=== PATIENT | female | born 1975 | race Caucasian/White ===

== ENCOUNTER 2022-04-11 07:29 | Emergency (ER) | payer BC, SELFPAY ==
--- NOTE | ~2022-04-11 | CT_ITS ---
EXAMINATION: CT ABDOMEN AND PELVIS WITH CONTRAST CLINICAL INFORMATION: Diffuse abdominal pain, nausea, vomiting, constipation. History obstruction. COMPARISON: None TECHNIQUE: Multidetector volumetric images were obtained from the superior aspect of the liver through the pubic symphysis following administration 85 mL of Omnipaque 350 intravenous contrast. Sagittal and coronal reformatted images were obtained on the technologist's workstation. Oral contrast: No This CT examination was performed using dose optimization techniques as appropriate, variously including the following: *Automated exposure control *Adjustment of mA and/or kV according to patient size (this includes techniques or standardized protocols for targeted exams where dose is matched to indication/reason for exam; i.e. extremities or head) *Use of iterative reconstruction technique DLP: 483 mGy-cm FINDINGS: LUNG BASES: The visualized lung bases are unremarkable. LIVER, GALLBLADDER, AND BILIARY TREE: The liver is normal in size, shape, and attenuation. No focal hepatic lesion or biliary ductal dilatation is present. Prior cholecystectomy. Common duct unremarkable. PANCREAS: Unremarkable. SPLEEN: Unremarkable. Incidental 1.2 cm splenule left upper quadrant. ADRENAL GLANDS: Unremarkable. KIDNEYS AND URETERS: The kidneys are normal in size, shape, and attenuation. No hydronephrosis, hydroureter, or calculi seen. No perinephric stranding. Parapelvic cyst 0.7 cm versus calyceal diverticulum upper pole right kidney. No additional imaging follow-up recommended. BLADDER: Unremarkable. GASTROINTESTINAL TRACT: There is no large or small bowel obstruction or focal inflammatory changes in the bowel or mesentery. The appendix is not seen with certainty. There are no inflammatory changes around the cecum or terminal ileum. No pneumatosis or free air. No ascites or fluid collection. ABDOMINAL WALL: No significant hernia is appreciated. LYMPH NODES: No lymphadenopathy. VASCULAR: Unremarkable. PELVIC VISCERA: Uterus retroverted. Dominant follicle right ovary 2.1 cm. No pelvic ascites. OSSEOUS STRUCTURES: Unremarkable. CT/CT abdomen pelvis w IV con IMPRESSION: 1. No bowel obstruction or focal inflammatory changes in bowel or mesentery. 2. Prior cholecystectomy. No ductal dilatation. 3. No hydronephrosis, calculi, or perinephric stranding. 4. Incidental dominant follicle right ovary 2.1 cm. Retroverted uterus. No pelvic ascites.
[2022-04-11 07:34] VITALS: BP 142/51; PULSE 91; RESP 18; TEMP 36.1; O2SAT 100; BMI 23.6
[2022-04-11 08:44] LABS: MANUAL DIFF FLAG NO
--- NOTE | 2022-04-11 08:55 | ED.ABDPAIN ---
HPI - Abdominal Pain General Chief Complaint: Abdominal Pain Stated Complaint: nausea/abd pain/dizziness Time Seen by Provider: 04/11/22 08:30 Source: patient Mode of arrival: ambulatory Limitations: no limitations History of Present Illness HPI narrative: Patient is a 46-year-old female who presents emergency department for evaluation of abdominal pain with constipation. She reports a history of a bowel obstruction in 2018, that did not require surgical intervention, but her symptoms feel similar to that. She still reports no significant bowel movement over the past 6-7 days despite the use of enemas. She reports that yesterday she did pass a very small amount of stool, with the presence of bright red blood clots. She is passing flatness. She has diffuse abdominal pain, particularly to the right lower quadrant. Has history of cholecystectomy and appendectomy, prior obstruction was thought to be in relation to adhesions from her appendectomy. Pain right now is 4/10. Of note she does endorse testing positive for COVID-19 12-14 days ago. She has associated nausea, previous vomiting but not over the past 2 days. Related Data Previous Rx's Medication Instructions Recorded lactulose 10 gram/15 mL (15 mL) 20 g (30 mL) PO TID #600 mL 04/11/22 oral solution Allergies Allergy/AdvReac Type Severity Reaction Status Date / Time acetazolamide Allergy Unknown Unknown Verified 04/11/22 09:11 furosemide Allergy Unknown Unknown Verified 04/11/22 09:11 topiramate [From Topamax] Allergy Unknown Unknown Verified 04/11/22 09:11 Bactrim Allergy Unknown unknown Uncoded 04/11/22 09:11 Review of Systems Review of Systems Constitutional : No Weight loss, No Fever, No Chills ENT/Mouth :? No sore throat, No Rhinorrhea Eyes: No Swelling, No Redness Cardiovascular : No Chest Pain, No SOB, No Edema Respiratory : No Cough, No Sputum, No Wheezing Gastrointestinal : Positive Nausea, no Vomiting, no Diarrhea, positive constipation, positive abdominal pain, No Hematochezia, No Melena Genitourinary : No Dysuria, No Urinary Frequency, No Hematuria, No Urgency? Musculoskeletal : No joint pain, No Myalgias, No Joint Swelling Skin : No Skin Lesions, No rash Neuro : No Weakness, No Numbness, No Dizziness, No Headache Psych : No Anxiety/Panic, No Depression Heme/Lymph: No Bruising, No Lymphadenopathy Endocrine : No Polyuria, No Polydipsia Yes all other systems are reviewed and are negative [facility] Past Medical History Attestation statement: The following information was validated with the patient. Source: old records reviewed Social History Social History Alcohol intake: unknown Smoked in Last 30 Days: No Use of substances other than those prescribed or required for medical reasons: Unknown Advance Directives: Yes Advance Directives Information Provided: No Advance Directives on File: No Patient : No Physical Exam ED Vital Signs: Vital Signs - 24 hr 04/11/22 07:34 04/11/22 12:06 04/11/22 14:15 Temperature 97 F 97.8 F Pulse Rate 91 65 74 Respiratory Rate 18 18 16 Blood Pressure 142/51 H 96/56 L 115/58 L Pulse Oximetry 100 99 Oxygen Delivery Method Room Air Room Air Room Air BMI result Body Mass Index 23.6 Appearance: Alert.?Oriented to person, place and time. No acute distress.?Normal affect. Eyes: Pupils equal, round and reactive to light.? ENT: Pharynx normal.?? Neck: Normal inspection.? Neck supple.?? CVS: Heart sounds normal. Normal heart rate and rhythm.? Pulses normal.?? Respiratory: No respiratory distress.? Lung sounds clear to auscultation bilaterally?? Abdomen: Soft significant right lower quadrant tenderness upon palpation, right upper quadrant/left lower quadrant/umbilical tenderness upon palpation which is mild. Normoactive bowel sounds. No pulsatile mass.?? Skin: Skin warm and dry.? Normal skin color.? Extremities: No lower extremity edema.? Neuro: Moves all extremities spontaneously. Sensation intact bilaterally. No focal neuro deficits. Ambulates with normal steady gait. Course Reevaluation(s) Reevaluation #1: CBC reveals a mild leukopenia, normocytic anemia not needing transfusion criteria. CMP overall unremarkable, mildly elevated BUN likely due to dehydration. is negative. Urinalysis not consistent with microscopic hematuria or infection. Occult stool is positive, patient with report of bright red blood per rectum yesterday early small bowel movements, rectal examination did reveal an external hemorrhoid not actively bleeding, no fissures. Pain persists at this time, will trial morphine IV. CT of the abdomen and pelvis is pending at this time. Time: 11:58 Reevaluation #2: Reviewed this case and imaging with ED attending dr. Acevedo. CT without evidence of obstruction, acute intra-abdominal findings. Consulted with radiologist as noted under MDM. Reviewed findings with patient. Symptoms consistent with constipation, discussed lactulose t.i.d., holding for loose stools, outpatient follow-up with primary care provider. Discussed worrisome signs and symptoms that would warrant re-evaluation in the emergency department. All questions answered. Patient is tolerating oral intake at this time. Stable for discharge. Time: 14:13 Medical Decision Making Medical Decision Making [facility] Narrative: Patient is a 46-year-old female presents emergency department for evaluation of constipation, abdominal pain. At the time of examination she is overall well appearing, nontoxic. She is afebrile without tachycardia, tachypnea, or hypoxia. Abdominal examination most notable for right lower quadrant tenderness with history of appendectomy, and otherwise diffuse mild abdominal tenderness. Rectal examination performed with ED husbandry technician; [place], no melena/hematochezia/palpable fecal impaction. Will obtain CBC to evaluate for leukocytosis/ anemia, CMP and lipase to evaluate for abnormal electrolytes /abnormal renal function/ abnormal hepatic/biliary function, CT of the abdomen pelvis to evaluate for obstruction/ colitis/ diverticulitis, occult stool and Urinalysis. Differential Diagnosis Differential Diagnoses: The differential diagnosis associated with the presentation includes (As noted above) Lab Data [facility] Lab Attestation statement: I reviewed the patient's lab results. 04/11/22 08:40 04/11/22 08:40 Labs: Lab Results 04/11/22 04/11/22 04/11/22 Range/Units 08:40 08:40 09:10 WBC 4.5 L (4.8-10.8) X10*3/uL RBC 3.76 L (4.20-5.50) X10*6/uL Hgb 11.8 L (12.0-16.0) g/dl Hct 35.1 L (37.0-47.0) % MCV 93.4 (80.0-98.0) fL MCH 31.4 (27.0-33.0) pg MCHC 33.6 (31.0-35.0) g/dl RDW 12.1 (11.0-16.0) % Plt Count 191 (160-400) X10*3/uL MPV 12.0 (9.4-12.3) fL Immature Gran % (Auto) 0.4 (0.0-0.4) % Neut % (Auto) 54.8 (45-73) % Lymph % (Auto) 32.2 (20-40) % Williamson % (Auto) 8.6 (2-11) % Eos % (Auto) 3.3 (0-4) % Baso % (Auto) 0.7 (0-2) % Lymph # (Auto) 1.5 (1.2-4.9) X10*3/uL Williamson # (Auto) 0.4 (0.1-1.2) X10*3/uL Eos # (Auto) 0.2 (0.0-0.4) X10*3/uL Baso # (Auto) 0.0 (0.0-0.2) X10*3/uL Abs Immat Gran (auto) 0.02 (0.00-0.03) X10*3/uL Absolute Neuts (auto) 2.5 (2.0-8.3) x10*3/uL Absolute Nucleated RBC 0.000 (0.0-0.012) X10*3/uL Nucleated RBC % (auto) 0.0 (0.0-0.2) /100WBC Sodium 143 (135-145) mmol/L Potassium 4.0 (3.3-5.1) mmol/L Chloride 108 (96-108) mmol/L Carbon Dioxide 25 (22-29) mmol/L Anion Gap 14 (12-20) BUN 18 H (9-16) mg/dL Creatinine 0.59 (0.5-1.4) mg/dL Estim Creat Clear Calc 108.3 Estimated GFR > 60 Random Glucose 74 (60-115) mg/dL Calcium 9.0 (8.4-10.2) mg/dL Total Bilirubin 0.5 (0.0-1.0) mg/dL AST 16 (5-31) U/L ALT 16 (0-31) U/L Alkaline Phosphatase 39 (39-117) U/L Total Protein 6.2 L (6.5-8.0) g/dL Albumin 3.8 (3.5-5.0) g/dL Beta HCG, Quant < 2 mIU/mL Urine Color Urine Appearance Urine pH (5.0-9.0) Ur Specific Elwood (1.005-1.025) Urine Protein (Neg-Trace) mg/dL Urine Glucose (UA) (Negative) mg/dL Urine Ketones (Negative) mg/dL Urine Blood (Negative) Urine Nitrite (Negative) Ur Leukocyte Esterase (Negative) Urine RBC (0-2) /HPF Urine WBC (0-5) /HPF Ur Squamous Epith Cells (0-2) /HPF Urine Bacteria (None Seen) Hyaline Casts (0-2) /LPF Stool Occult Blood (NEGATIVE) COVID-19 (JOSE) (Negative) COVID-19 Clin Com Influenza Type A (GUIDO) Negative (Negative) Influenza Type B (GUIDO) Negative (Negative) Influenza A & B Note See Note 04/11/22 04/11/22 04/11/22 Range/Units 09:10 09:21 10:26 WBC (4.8-10.8) X10*3/uL RBC (4.20-5.50) X10*6/uL Hgb (12.0-16.0) g/dl Hct (37.0-47.0) % MCV (80.0-98.0) fL MCH (27.0-33.0) pg MCHC (31.0-35.0) g/dl RDW (11.0-16.0) % Plt Count (160-400) X10*3/uL MPV (9.4-12.3) fL Immature Gran % (Auto) (0.0-0.4) % Neut % (Auto) (45-73) % Lymph % (Auto) (20-40) % Williamson % (Auto) (2-11) % Eos % (Auto) (0-4) % Baso % (Auto) (0-2) % Lymph # (Auto) (1.2-4.9) X10*3/uL Williamson # (Auto) (0.1-1.2) X10*3/uL Eos # (Auto) (0.0-0.4) X10*3/uL Baso # (Auto) (0.0-0.2) X10*3/uL Abs Immat Gran (auto) (0.00-0.03) X10*3/uL Absolute Neuts (auto) (2.0-8.3) x10*3/uL Absolute Nucleated RBC (0.0-0.012) X10*3/uL Nucleated RBC % (auto) (0.0-0.2) /100WBC Sodium (135-145) mmol/L Potassium (3.3-5.1) mmol/L Chloride (96-108) mmol/L Carbon Dioxide (22-29) mmol/L Anion Gap (12-20) BUN (9-16) mg/dL Creatinine (0.5-1.4) mg/dL Estim Creat Clear Calc Estimated GFR Random Glucose (60-115) mg/dL Calcium (8.4-10.2) mg/dL Total Bilirubin (0.0-1.0) mg/dL AST (5-31) U/L ALT (0-31) U/L Alkaline Phosphatase (39-117) U/L Total Protein (6.5-8.0) g/dL Albumin (3.5-5.0) g/dL Beta HCG, Quant mIU/mL Urine Color Yellow Urine Appearance Clear Urine pH 8.5 (5.0-9.0) Ur Specific Elwood 1.010 (1.005-1.025) Urine Protein Negative (Neg-Trace) mg/dL Urine Glucose (UA) Negative (Negative) mg/dL Urine Ketones Negative (Negative) mg/dL Urine Blood Negative (Negative) Urine Nitrite Negative (Negative) Ur Leukocyte Esterase Negative (Negative) Urine RBC 0-2 (0-2) /HPF Urine WBC 0-5 (0-5) /HPF Ur Squamous Epith Cells 0-2 (0-2) /HPF Urine Bacteria Trace (None Seen) Hyaline Casts 0-2 (0-2) /LPF Stool Occult Blood POSITIVE (NEGATIVE) COVID-19 (JOSE) Negative (Negative) COVID-19 Clin Com See Note Influenza Type A (GUIDO) (Negative) Influenza Type B (GUIDO) (Negative) Influenza A & B Note Independent Interpretation I performed an independent interpretation of an: CT Scan (concern for potential contrast material in the transverse and ascending bowel, dilated bowels, patient denies any recent contrast/CT scan) Radiology Impression Discussion of test interpretation with radiology: I discussed test interpretation with the radiologist (Discussed CT finding with radiologist, concern for question of contrast material in transverse and ascending bowel, dilated bowel loops, shared concern from Radiology, patient again confirms no recent oral contrast, no Pepto-Bismol, likely this is in relation to something that she has consumed,) and I have reviewed the radiologist's reading. Radiologist Impression: CT/CT abdomen pelvis w IV con IMPRESSION: 1. No bowel obstruction or focal inflammatory changes in bowel or mesentery. 2. Prior cholecystectomy. No ductal dilatation. 3. No hydronephrosis, calculi, or perinephric stranding. 4. Incidental dominant follicle right ovary 2.1 cm. Retroverted uterus. No pelvic ascites. ? Prescription Management I considered prescription management with: Other (Lactulose) Medications Administered Discontinued Medications Generic Name Dose Route Start Last Admin Trade Name Freq PRN Reason Stop Dose Admin Acetaminophen 975 mg 04/11/22 11:57 04/11/22 12:05 Acetaminophen 325 Mg Tablet PO 04/11/22 11:58 975 mg ONCE ONE Administration Sodium Chloride 1,000 mls @ 999 mls/hr 04/11/22 09:00 04/11/22 10:44 Ns IV 04/11/22 10:00 Infused .Q1H1M PERI Infusion Iohexol 100 ml 04/11/22 10:47 04/11/22 10:47 Iohexol 350 Mg/Ml 100 Ml Infus..Btl IV 04/11/22 10:48 85 ml ONCE ONE Administration Ketorolac Tromethamine 30 mg 04/11/22 09:07 04/11/22 09:22 Ketorolac Tromethamine 30 Mg/Ml Vial IVPUSH 04/11/22 09:08 30 mg ONCE ONE Administration Lactulose 20 gm 04/11/22 14:09 04/11/22 14:21 Lactulose 20 Gm/30 Ml Solution PO 04/11/22 14:10 20 gm ONCE ONE Administration Morphine Sulfate 4 mg 04/11/22 11:57 04/11/22 12:06 Morphine Sulfate 4 Mg/Ml Cartridge IVPUSH 04/11/22 11:58 4 mg ONCE ONE Administration Protocol Ondansetron HCl 4 mg 04/11/22 08:54 04/11/22 09:22 Ondansetron Hcl 4 Mg/2 Ml Vial IVPUSH 04/11/22 08:55 4 mg ONCE ONE Administration Discharge Plan Discharge Clinical Impression: Constipation Patient Disposition: Home, Self-Care Instructions: Constipation (ED) Additional Instructions: As we discussed, there is not evidence of bowel obstruction on your CT scan. You are significantly constipated, take lactulose 3 times daily until successful for bowel movement. Hold for loose stools. Contact your primary care provider and arrange for a follow-up visit within 3 days. You may return back to the emergency department any new or worsening symptoms or concerns. Prescriptions: New lactulose 10 gram/15 mL (15 mL) solution 20 g PO TID Qty: 600 0RF Rx Instructions: Hold for loose stools Referrals: Tiburcio Jackson MD [Primary Care Provider] - Interventions: ED Discharge Assessment Last Done: 04/11/22 14:25 Discharge Date/Time: 04/11/22 14:26
[2022-04-11 08:59] LABS: Basophils Percent Auto 0.7 % (0-2); Eosinophils Absolute Auto 0.2 X10*3/uL (0.0-0.4); Eosinophils Percent Auto 3.3 % (0-4); Hematocrit 35.1 % (37.0-47.0); Hemoglobin 11.8 g/dl (12.0-16.0); Imm Gran Abs Auto 0.02 X10*3/uL (0.00-0.03); Imm Gran Pct Auto 0.4 % (0.0-0.4); Lymphocytes Absolute Auto 1.5 X10*3/uL (1.2-4.9); Lymphocytes Percent Auto 32.2 % (20-40); Mean Corpuscular HGB Conc 33.6 g/dl (31.0-35.0); Mean Corpuscular Hemoglobin 31.4 pg (27.0-33.0); Mean Corpuscular Volume 93.4 fL (80.0-98.0); Monocytes Absolute Auto 0.4 X10*3/uL (0.1-1.2); Monocytes Percent Auto 8.6 % (2-11); Neutrophils Absolute Auto 2.5 x10*3/uL (2.0-8.3); Neutrophils Percent Auto 54.8 % (45-73); Platelet Count 191 X10*3/uL (160-400); Red Blood Count 3.76 X10*6/uL (4.20-5.50); Red Cell Distribution Width 12.1 % (11.0-16.0); White Blood Count 4.5 X10*3/uL (4.8-10.8)
[2022-04-11 09:10] LABS: Alanine Aminotransferase 16 U/L (0-31); Albumin Level 3.8 g/dL (3.5-5.0); Alkaline Phosphatase 39 U/L (39-117); Anion Gap 14 (12-20); Aspartate Amino Transferase 16 U/L (5-31); Bilirubin Total 0.5 mg/dL (0.0-1.0); Blood Urea Nitrogen 18 mg/dL (9-16); Carbon Dioxide 25 mmol/L (22-29); Chloride 108 mmol/L (96-108); Creatinine Clr Calc Pharmacy 108.3; Estimated Glomerular Filt Rate > 60; Glucose Random 74 mg/dL (60-115); Sodium 143 mmol/L (135-145); Total Protein 6.2 g/dL (6.5-8.0)
[2022-04-11] MEDS: ondansetron HCL 4 MG/2 ML VIAL IVPUSH (09:22)
[2022-04-11] MEDS: Ketorolac Tromethamine 30 MG/ML VIAL IVPUSH (09:22)
[2022-04-11] MEDS: 0.9 % Sodium Chloride 1,000 ML 999 ML IV (09:23)
[2022-04-11 09:29] LABS: OBS Int Ctl Valid YES; OBS1 POSITIVE (NEGATIVE)
--- NOTE | 2022-04-11 09:32 | PC.NURSE ---
Patient presents with ABD pain has history of SBO passing gas BS quad x 4 no repsiratory distress noted. Patient reports ecent constipation with some N/V. BS quad x 4 no guarding noted . IV access obtained labs collected and sent will CTM
[2022-04-11 09:39] LABS: COVID-19 Test Negative (Negative); IDNOW Serial# 16C4AD1C
[2022-04-11 09:40] LABS: IDNOW Serial# BCCEAD1C; Influenza A Negative (Negative); Influenza B2 Negative (Negative)
[2022-04-11 10:04] LABS: HCG Quantitative < 2 mIU/mL
[2022-04-11 10:35] LABS: Appearance Urine Clear; Color Urine Yellow; Glucose Urine UA Negative (Negative); Leukocyte Esterase Urine Negative (Negative); Nitrite Urine Negative (Negative); PH 8.5 (5.0-9.0); Urine Blood Negative (Negative); Urine Ketones Negative (Negative); Urine Protein Negative (Neg-Trace)
[2022-04-11 10:39] LABS: Bacteria Urine Trace (None Seen); Hyaline Casts Urine 0-2 /LPF (0-2); RBC Urine 0-2 /HPF (0-2); Squamous Epithelial Cell Urine 0-2 /HPF (0-2); WBC Urine 0-5 /HPF (0-5)
[2022-04-11] MEDS: iohexoL 350 MG/ML 100 ML INFUS..BTL IV (10:47)
--- NOTE | 2022-04-11 11:43 | PC.NURSE ---
Notified provider patient complaint of increased pain in ABD and headache awaiting ordes will CTM
[2022-04-11] MEDS: Acetaminophen 325 MG TABLET 975 MG PO (12:05)
[2022-04-11 12:06] VITALS: BP 96/56; PULSE 65; RESP 18
[2022-04-11] MEDS: Morphine Sulfate 4 MG/ML CARTRIDGE IVPUSH (12:06)
[2022-04-11 14:15] VITALS: BP 115/58; PULSE 74; RESP 16; TEMP 36.6; O2SAT 99
[2022-04-11] MEDS: Lactulose 20 GM/30 ML SOLUTION PO (14:21)
== END 2022-04-11 14:26 | disposition home or self-care (01) ==
PROVIDERS: Nurse Practitioner Family; Emergency Provider Emergency Medicine; PCP Internal Medicine
DX: K59.00 Constipation, unspecified (principal); R10.2 Pelvic and perineal pain; R42 Dizziness and giddiness; R11.2 Nausea with vomiting, unspecified; Z20.822 Contact with and (suspected) exposure to COVID-19; Z20.828 Contact with and (suspected) exposure to other viral communicable diseases; Z79.899 Other long term (current) drug therapy
CPT/HCPCS: 36415; 74177; 80053; 81001; 82272; 84702; 85025; 87502; 87635; 96361; 96374; 96375; 99284; 99285; J1885; J2270; J2405; Q9967

== ENCOUNTER 2024-11-22 14:56 | Outpatient (AMB) | payer BC, SELFPAY ==
[2024-11-22 14:58] VITALS: BP 110/68; PULSE 97; O2SAT 97; BMI 25.1
--- NOTE | 2024-11-22 14:58 | A.OFFVIS_ITS ---
Vital Signs 11/22/24 14:58 Height 5 ft 5 in Weight 151 lb 0.266 oz BMI 25.1 BP 110/68 Blood Pressure Location Lt brachial Position Sitting Pulse 97 Pulse Source Pulse Oximeter Pulse Oximetry (%) 97 Oxygen Delivery Method Room Air Intake Visit Reasons: Pulmonary nodule Out And Out Cigar Maker Hand Required: No Accompanied by: Self / Same As Patient Allergies acetazolamide Allergy (Unknown, Verified 11/22/24 15:02) Unknown furosemide Allergy (Unknown, Verified 11/22/24 15:02) Unknown topiramate (From Topamax) Allergy (Unknown, Verified 11/22/24 15:02) Unknown Bactrim Allergy (Unknown, Uncoded 04/11/22 09:11) unknown HPI Comments Details: The patient is here for pulmonary evaluation. The patient is a 49 year woman presenting with worsening respiratory symptoms. The patient states that at some point she did have a CT scan of the the abdomen because of her GI issues that noted to have some irregularities on the lung windows. Therefore she did undergo a formal CT scan of the chest at [facility]. I do not have the actual images with the initial report. Per report was mentioned that she did have some tree-in-bud suggesting bronchiolitis. She did see Pulmonary at that point and she did undergo pulmonary function studies. The patient ultimately after that developed COVID. After COVID though her respiratory symptoms worsen when she started developing intermittent shortness of breath chest tightness in addition to difficulty breathing in. She patient was given a rescue inhaler without any significant improvement. Ultimately she had repeat CT scans of the chest. She had a CAT scan in a July 2024 demonstrating a new nodular density within the trachea in addition to other stable pulmonary nodules and granuloma. Ultimately I do not appreciate any reports of tree-in-bud and that report. Although I have not seen the images. She had a repeat CAT scan 3 months later and then the endotracheal density had been resolved likely mucus. The other nodules are stable. The patient in the office we had her do a spirometry both pre and post and the patient has spirometry flow volume loop were normal. On exam though she did have some forced exhalation wheezing. The patient did not have any significant response to bronchodilators. At this point she has been using Sy mbicort. She has not seen any significant significant dramatic improvement with the Symbicort but she wants to give it a good try. I did provide her a spacer so we can get the Symbicort deliver to the small airways. The patient also will have undergo blood work to assess for inflammatory changes that could occur and also hypersensitivity reactions and allergies that may be indeed precipitated by her last COVID infection. We briefly spoke about a methacholine challenge has a good opportunity to further address the question of asthma hyper reactive airways. The patient will continue with the Symbicort with a spacer. She also has a peak flow that she is going to monitor her peak flows specially when she is having hard time. And will review her blood work in addition to the images of her CAT scans and her response to therapy on the next visit. [facility] Medical History (Updated 11/22/24 @ 21:37 by Ash Hsu MD) Bronchiolitis Pulmonary nodules Wheezing Dyspnea Allergies Social History (Updated 11/22/24 @ 15:05 by Nury Del Angel CMA) Alcohol intake: unknown Patient Tobacco Use Status: Never used Tobacco Review of Systems Const Denies fever(s) Eyes Reports no additional complaints ENT Reports no additional complaints and Denies throat swelling Card Denies chest pain, Reports dyspnea and Reports dyspnea on exertion Resp Denies chest congestion, Reports cough, Denies hemoptysis, Reports dyspnea and Reports dyspnea on exertion GI Reports constipation Musc Reports no additional complaints Skin/Breast Denies rash Neuro Reports no additional complaints Endo Reports no additional complaints Gonzalo/Lymph Reports no additional complaints Aller/Immun Denies urticaria and Denies throat swelling Physical Exam Vital Signs: Last Vital Signs Pulse 97 11/22/24 14:58 BP 110/68 11/22/24 14:58 Pulse Ox 97 11/22/24 14:58 Oxygen Delivery Method Room Air 11/22/24 14:58 BMI result Body Mass Index 25.1 Const General: comfortable HEENT Head: Yes normocephalic Neck Neck: Yes supple Chest Chest palpation & inspection: normal inspection of the chest Resp Effort & Inspection: normal respiratory effort Auscultation: wheezes expiratory wheezes (on force exhalation) Cardio Rate: regular rate Rhythm: regular rhythm Heart sounds: S1 normal heart sound present and S2 normal heart sound present GI Palpation (GI): Soft to palpation Skin General skin exam: no rashes or lesions noted Extrem General: Yes no clubbing, cyanosis or edema Office Procedures Spirometry Testing Spirometry Comments: SPIROMETRY DONE PRE AND POST DILATOR 02193- Spirometry Challenge Results Reviewed Results Reviewed: pre and post spirometry, no significant change after Duoneb Assessment & Plan Assessment & Plan (1) Dyspnea: Code(s): R06.00 - Dyspnea, unspecified Category: Medical Qualifiers: Dyspnea type: shortness of breath Qualified Code(s): R06.02 - Shortness of breath (2) Wheezing: Code(s): R06.2 - Wheezing Category: Medical (3) Pulmonary nodules: Code(s): R91.8 - Other nonspecific abnormal finding of lung field Category: Medical (4) Bronchiolitis: Code(s): J21.9 - Acute bronchiolitis, unspecified Category: Medical Plan Continue Symbicort, provided spacer Peak flow meter Bloodwotk and allergy testing Requesting CT chest images from [facility] to review [place] [facility] [place] Consider methacholine challenge F/U 2 months Orders: Orders Resp Allergy Profile Region I Today Ash Hsu MD R06.00 - Dyspnea, unspecified, R91.1 - Solitary pulmonary nodule, T78.40XA - Allergy, unspecified, initial encounter Cell Count w Diff Pleural Fld Today Ash Hsu MD R06.00 - Dyspnea, unspecified, T78.40XA - Allergy, unspecified, initial encounter Erythrocyte Sedimentation Rate Today Ash Hsu MD R06.00 - Dyspnea, unspecified, T78.40XA - Allergy, unspecified, initial encounter Hypersensitive Pneumonitis Prf Today Ash Hsu MD R06.00 - Dyspnea, unspecified, R91.8 - Other nonspecific abnormal finding of lung field, T78.40XA - Allergy, unspecified, initial encounter Immunoglobulin E Today Ash Hsu MD R06.00 - Dyspnea, unspecified, T78.40XA - Allergy, unspecified, initial encounter Complete Blood Count Auto Diff Today Ash Hsu MD R06.00 - Dyspnea, unspecified, T78.40XA - Allergy, unspecified, initial encounter T Spot TB Today Ash Hsu MD R06.00 - Dyspnea, unspecified, T78.40XA - Allergy, unspecified, initial encounter AMB Spirometry Testing Today Yamileth Hall, RT R06.00 - Dyspnea, unspecified KENDAL Reflex Titer and Pattern Today Ash Hsu MD R06.00 - Dyspnea, unspecified, T78.40XA - Allergy, unspecified, initial encounter Cyclic Citrullinated Peptide Today Ash Hsu MD R06.00 - Dyspnea, unspecified, T78.40XA - Allergy, unspecified, initial encounter Medications: Discontinued lactulose Hold for loose stools Discontinued Reason: Patient no longer taking 20 grams (30 mL) PO TID 600 mL 0RF Coding Level of Care Code New Pt Level 4 (49172) Diagnoses Shortness of breath R06.02 Dyspnea type: shortness of breath Wheezing R06.2 Pulmonary nodules R91.8 Bronchiolitis J21.9 CPT Codes Spirometry - CPT: 49370- Spirometry Challenge ([id number]) Time Spent (min) 45
--- OUTSIDE RECORDS SUMMARY | 2024-11-22 18:35 | XMS_ITS | Encounter Summary ---
Author Organization [facility] Address [address] [place] [id number] Phone Care Team Providers Care Administrative Technician Name Role Phone Tiburcio Jackson MD Primary Care Provider + [phone] Encounter Details Date Type Department Care Team (Late st Contact Info) Description 04/10/2023 Procedure Pass [facility] Cardiovascular And Interventional Radiology [address] [place] [address] Social History Tobacco Use Types Packs/Day Years Used Date Smoking Tobacco: Never Passive Smoke Exposure: Never Smokeless Tobacco: Never Alcohol Use Standard Drinks/Week Comments Never 0 (1 standard drink = 0.6 oz pur e alcohol) Education Answer Date Recorded Are you interested in more education? Not on curt e 07/04/2022 Are you concerned about learning? Not on file 07/04/2022 No 07/04/2022 No 07/04/2022 Digital Access Answer Date Recorded No 07/31/2022 No 07/31/2022 Reliable internet access at home? Not on file 07/31/2022 Device with a working camera? Not on file Intimate Partner Violence Answer Date R ecorded Are you denied basic needs s uch as food, clothing, or medical care? No 04/10/2023 In the past 12 months have y ou been in a relationship with a person who hurts, threatens, or tries to control you? No 04/10/2023 Are you denied basic needs s uch as food, clothing, or medical care? No 04/10/2023 In the past 12 months have y ou been in a relationship with a person who hurts, threatens, or tries to control you? No 04/10/2023 Comments Unknown Sex and Gender Information Value Date Recorded Sex Assigned at Not on file Legal Sex Female 5:49 PM EDT Gender Identity Not on file Sexual Orientation Not on file documented as of this encounter Plan of Treatment Not on file documented as of this encounter Visit Diagnoses Not on filedocumented in this encounter Care Teams Administrative Technician Relationship Specialty Start Date End Date Tiburcio Jackson MD [address] [place] [address] PCP - General Internal Medicine 08/08/22 documented as of this encounter Additional Source Comments The information contained in this document represents components of the legal health record. It is not the complete legal health record.[facility]
--- OUTSIDE RECORDS SUMMARY | 2024-11-22 18:35 | XMS_ITS ---
Author Name [facility] Organization Unknown History of Medication Use Medication Directions Dispensed Refills Start Date End Date Stat us atogepant (QULIPTA) 60 mg tablet Take 1 tablet (60 mg total) by mouth daily. 08/31/2024 active Nerve Stimulator (Nerivio) Device Apply 1 Device topically daily as needed (headache). Apply one 45 minute treatment with device within 60 minutes of migraine onset 08/31/2024 active proMETHAZINE (PHENERGAN) 25 MG tablet Take 1 tablet (25 mg total) by mouth once as needed for nausea or vomiting. 08/31/2024 active rizatriptan (MAXALT) 10 MG tablet Take 1 tablet (10 mg total) by mouth once as needed for migraine (1 pill at start of migraine, may repeat once after 2 hours, max 2 pills over 24 hours). 08/31/2024 active zavegepant hcl (Zavzpret) 10 mg/act Solution nasal spray Instill 1 spray into 1 nostril at the onset of migraine. Max of 1 spray in 24 hours. 08/31/2024 active Allergies Allergen Reaction Severity Comment Documented Date Source Statu s SULFAMETHOXAZOLE-TRIMETHOPRIM HIVES 08/31/2024 CCT active Encounters Encounter Type Encounter Reason Primary Diagnosis Location Date Ambulatory Chronic migraine with aura, intractable, without status migrainosus Chronic migraine with aura, intractable, without status migrainosus Simplesurance 08/31/2024 Care Team Organization Name Specialty Phone Email Start Date End [facility] 08/31/2024 09/29/2024 [facility] 06/26/2023
--- OUTSIDE RECORDS SUMMARY | 2024-11-22 18:35 | XMS_ITS | Clinical Summary ---
Author Organization [facility] Address [facility] [employer] [address] [address] Phone Care Team Providers Care Motorsports Technician Name Role Phone Tiburcio Chau MD Primary Care Provider + [phone] Allergies Active Allergy Reactions Criticality Noted Date Comments Latex 09/16/2022 Sulfa (Sulfonamide Antibiotics) 09/06 Medications rizatriptan (MAXALT) 10 MG tablet Take 1 tablet by mouth as needed. 3 Active LINZESS 72 mcg capsule Take 1 capsule by mouth every morning. 3 Active divalproex (DEPAKOTE ER) 500 MG ER 24 hr tablet Take 1 tablet by mouth 2 (two) times a day. 3 Active riboflavin, vitamin B2, (,VITAMIN B-2,) 100 mg Tab Take 100 mg by mouth 2 (two) times a day. Active calcium carbonate-vitam in D3 1,250 mg (500 mg elemental)-400 units per tablet Take 1 tablet by mouth daily. Active betamethasone, augmented, (DIPROLENE AF) 0.05 % cream Apply topically as needed. Active levothyroxine (SYNTHROID, LEVOTHROID) 88 MCG tablet TAKE ONE TABLET BY MOUTH DAILY FOR 6 DAYS A WEEK AND TAKE ONE AND ONE-HALF TABLETS BY MOUTH ONE DAY A WEEK. 98 tablet 2 4 Active Active Problems Problem Noted Date Diagnosed Date Nail abnormalities 06/10/2023 Assessment & Plan (06/11/2023 10:36 AM EDT): Patient saw grape picker who recommended endocrine testing. Added vitamin D, repeat TSH and CBC to next labs. She denies any bleeding. Has not had a period since endometrial ablation many years ago. Vitamin D deficiency, unspecified 06/10/2023 Assessment & Plan (06/10/2023 9:24 AM EDT): Getting 400 IU D3 daily from her calcium supplement. Added vitamin D level to next labs because of the changes. 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 Last TSH normal 2.35 in 09/2022. She continues to take 88 mcg levothyroxine 7.5 tablets/week. Will check TSH partly because of the nail changes. Assessment & Plan (09/16/2022 9:23 AM EDT): Levothyroxine dose was increased from 88 mcg daily to 7.5 tablets/week about a year ago. Recent TSH is not available. Clinically euthyroid. Plan to repeat TSH today and will discuss results through [facility]. Reviewed symptoms of under and over replacement, patient to call if concerned. Thyroid nodule 09/16/2022 Overview (06/11/2023): Mid/inferior 1.7 cm, FNA benign in 2017. Gradual growth, 2.2 cm in 10/2020-3.4 cm in 10/2021-3.4 cm 03/2023-partially cystic. Increasing compression symptoms Assessment & Plan (06/11/2023 10:34 AM EDT): Enlarging left nodule which had benign FNA around 2016. Size increased from 2.2 cm to 3.4 cm between 10/2020 and 10/2021,TR 3 with cystic change. Second biopsy on 04/10/2023 was benign consistent with a follicular nodule. Patient continues to have some compression symptoms in the left thyroid bed. She is thinking about surgery but would like to postpone surgical consultation for next year because of family happenings. She will let me know if the compression symptoms worsen and will arrange surgical consultation with Dr. Harpreet Dodge. Assessment & Plan (09/16/2022 1:59 PM EDT): About 10 years ago a Lt thyroid nodule palpated by PCP. Patient recalls a benign FNA about 6 years ago. She became more aware of this nodule by early 2022 and had a repeat ultrasound. Unfortunately we do not have her records but she recalls that the nodule tripled in size because of more fluid-fill. She is aware of something in her throat with swallowing but the symptoms are not any worse to consider a surgical consultation at this point. Plan to repeat ultrasound in 03/2023 or earlier if symptoms of compression in the thyroid bed. Social History Tobacco Use Types Packs/Day Years Used Date Smoking Tobacco: Never Passive Smoke Exposure: Never Smokeless Tobacco: Never Tobacco Cessation:Counseling Given: Not Answered Alcohol Use Standard Drinks/Week Comments Never 0 [...] 04/10/2023 Are you denied basic needs s [facility] as food, clothing, or medical care? No [...] on file Sexual Orientation Not on file Last Filed Vital Signs Vital Sign Reading Time Taken Comments Blood Pressure 114/78 06/10/2023 8:56 AM EDT Pulse 84 06/10/2023 8:56 AM EDT Temperature - - Respiratory Rate - - Oxygen Saturation 99% 06/10/2023 8:56 AM EDT Inhaled Oxygen Concentration - - Weight 71.5 kg (157 lb 9.6 oz) 06/10/2023 8:56 A M EDT Height 163.2 cm (5' 4.25 ) 06/10/2023 8:56 AM ED T Body Mass Index 26.84 06/10/2023 8:56 AM EDT Plan of Treatment Health Maintenance Due Date Last Done Comments Adult Td,Tdap Booster 1976 LIPID PANEL 1976 VALPROIC ACID (DEPAKENE) LEVEL 1976 DEPRESSION SCREENING 1988 HEPATITIS C SCREENING 1994 HIV ONE-TIME SCREENING (18-65 YEARS) 1994 PAP SMEAR 1997 SCREENING FOR DIABETES 2011 MAMMOGRAM 2016 COLOGUARD 2021 COLONOSCOPY 2021 COLORECTAL CANCER SCREENING 2021 FIT TEST 2021 FOBT 2021 SIGMOIDOSCOPY 2021 VIRTUAL COLONOSCOPY 2021 TSH LEVEL 06/09/2024 06/10/2023, 09/16/2022 INFLUENZA VACCINE (#1) 2024 , 02/08/2018, 11/09/2016, Additional history exists COVID-19 VACCINE (2024- season) 2024 04/20/2020, 03/30/2020 SMOKING STATUS SCREENING (Once After 26 Yrs) Completed 06/10/2023 HEPATITIS A VACCINES Aged Out No long er eligible based on patient's age to complete this topic HIB VACCINES Aged Out No longer eligi ble based on patient's age to complete this topic MENINGOCOCCAL VACCINES (ACWY) Aged Out No longer eligible based on patient's age to complete this topic MENINGOCOCCAL VACCINES (B) Aged Out N o longer eligible based on patient's age to complete this topic PNEUMOCOCCAL VACCINES (0-49 years) Aged Out No longer eligible based on patient's age to complete this topic Medical Devices Not on file Procedures Procedure Name Priority Date/Time Associated Diagnosis Comments TSH WITH REFLEX Routine 06/10/2023 9:39 AM EDT 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 from Last 3 Months or Most Recently Relevant to Health Maintenance Results * TSH with reflex (06/10/2023 9:39 AM EDT) TSH 0.94 0.27 - 4.20 uIU/mL [facility] Blood 06/10/2023 9:39 AM EDT 06/10/2023 9:43 AM EDT us Nishi Oro MD LAB BLOOD ORDERABLES Final Res ult [address] [address] from Last 3 Months or Most Recently Relevant to Health Maintenance Insurance [employer] [facility] [employer] [facility] [place] [id number] [employer] [facility] [place] [id number] [employer] [facility] [employer] [facility] Care Teams Motorsports Technician Relationship Specialty Start Date End Date Tiburcio Chau MD [address] [place] [address] PCP - General Internal Medicine 08/08/22 Additional Source Comments The information contained in this document represents components of the legal health record. It is not the complete legal health record.[facility]
--- OUTSIDE RECORDS SUMMARY | 2024-11-22 18:35 | XMS_ITS | Patient Health Record ---
Author Organization [facility] Address [address] [place] [id number] Care Team Providers Care Sales Marketing Director Name Role Phone Vikram Walker Primary Care Provider Tiburcio Jackson Unavailable Unavailable Allergies Allergen (clinical drug ingredient) Drug/Non Drug Allergy documented on EMR Reaction Allergy Type Onset Date Status SULFACETAMIDE-SULF UR 10-5% CRM % (W/W) (uncoded) Sulfur, Elemental Allergy 08/21/2020 Active Reason For Referral No Information Medications Medication SIG (Take, Route, Frequency, Duration) Notes Start Date End Date Status EXCEDRIN MIGRAINE CAPLET 250-250-65 MG 0 2 prn; Duration: 30 *please review for potential _update for e-prescription and drug interaction check* 05/01/2020 Active Vyepti 100 MG/ML 100mg Intravenous once every 3 months; Duration: 90 days 11/05/2022 Active Cyclobenzaprine HCl 5 MG 1 tablet Orally three times a day as needed; Duration: 30 days 11/05/2022 Active Vitamin B-2 100 mg 120 Oral Take 2 tabs bid with meals (4 tabs qd).; Duration: 30 05/02/2020 Active CALCIUM 600 MG-D3 400 UNIT SFGL 600 MG(1,500MG) -400 UNIT 0 1Qam; Duration: 30 *please review for potential _update for e-prescription and drug interaction check* 05/01/2020 Active Ethacrynic Acid 25 MG 1 tablet with food or milk Orally Twice a day; Duration: 30 day(s) 03/06/2021 Not-Taking Promethazine HCl 12.5 MG TAKE 1 TABLET BY MOUTH EVERY 6 HOURS NEEDED FOR NAUSEA; Duration: 15 Active Luqhfjszua-FXCG-Mcese ine 50-325-40 MG TAKE ONE CAPSULE BY MOUTH TWICE A DAY NEEDED FOR MIGRAINE; Duration: 15 Active Linzess 72 MCG 1 capsule at least 30 minutes before a meal Orally Once a day; Duration: 90 days Active LEVOTHYROXINE 88 MCG CAPSULE 0 1 qam; Duration: 30 *please review for potential _update for e-prescription and drug interaction check* 05/01/2020 Active WOMEN'S DAILY FORMULA CAPLET 27-0.4 MG 0 1 qam; Duration: 30 *please review for potential _update for e-prescription and drug interaction check* 05/01/2020 Active Rizatriptan Benzoate 10 MG 1 tablet along with 2 tabs ibuprofen Orally as needed at onset of migraine. May repeat once after 2 hrs if headache returns.; Duration: 30 days Active Divalproex Sodium ER 500 MG TAKE ONE TABLET BY MOUTH TWICE A DAY; Duration: 90 Active Problems Problem Type SNOMED Code ICD Code Onset Dates Problem Status W/U Status Risk Notes Problem Refractory migraine with aura (230135679) Migraine with aura, intractable, with status migrainosus (G43.111) Active confirmed Problem Chronic intractable migraine without aura (699486631055141 ) Chronic migraine without aura, intractable, with status migrainosus (G43.711) Active confirmed Problem Benign intracranial hypertension (83340743) Benign intracranial hypertension (G93.2) Active confirmed Problem Myalgia of auxiliary muscles, 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
--- OUTSIDE RECORDS SUMMARY | 2024-11-22 18:35 | XMS_ITS | Encounter Summary ---
Author Organization [facility] Address [address] [place], [place] [id number] Care Team Providers Care Jackhammer Operator Name Role Phone Tiburcio Jackson MD Primary Care Provider Encounter Details Date Type Department Care Team (Late st Contact Info) Description 10/14/2023 Scanned Document [address] [phone] Jose Nair MD [address] [place] [address] Social History Tobacco Use Types Packs/Day Years Used Date Smoking Tobacco: Never Assessed Comments Unknown Sex and Gender Information Value Date Recorded Sex Assigned at Female 03/15/2024 3:07 PM EST Legal Sex Female 9:26 AM EDT Gender Identity Female 03/15/2024 3:07 PM EST Sexual Orientation Heterosexual (straight) 03/15 3:07 PM EST documented as of this encounter Plan of Treatment Upcoming Encounters Date Type Department Care Team (Late st Contact Info) Description 01/23/2025 10:00 AM EST Office Visit [address] [phone] documented as of this encounter Visit Diagnoses Not on filedocumented in this encounter Care Teams Jackhammer Operator Relationship Specialty Start Date End Date Tiburcio Jackson MD [address] [place] [address] PCP - General Internal Medicine 06/26/23 documented as of this encounter
--- OUTSIDE RECORDS SUMMARY | 2024-11-22 18:35 | XMS_ITS | Encounter Summary ---
Author Organization [facility] Address [address] [place], [place] [id number] Care Team Providers Care Tape Cutting Machine Operator Name Role Phone Tiburcio Jackson MD Primary Care Provider Encounter Details Date Type Department Care Team (Late st Contact Info) Description 06/26/2023 Scanned Document [address] [phone] Jose Nair MD [address] [place] [address] Social History Tobacco Use Types Packs/Day [...] Description 01/23/2025 10:00 AM EST Office Visit [address] [phone] documented as of this encounter Visit Diagnoses Not on filedocumented in this encounter Care Teams Tape Cutting Machine Operator Relationship Specialty Start Date End Date Tiburcio Jackson MD [address] [place] [address] PCP - General Internal Medicine 06/26/23 documented as of this encounter
--- OUTSIDE RECORDS SUMMARY | 2024-11-22 18:35 | XMS_ITS | Clinical Summary ---
Author Organization [facility] Address [address] [place] [address] Care Team Providers Care Coding Clerk Name Role Phone Tiburcio Chau MD Primary Care Provider Allergies Active Allergy Reactions Criticality Noted Date Comments Sulfamethoxazole-Trimethoprim Hives Medium 2024 Medications atogepant (QULIPTA) 60 mg tabletIndications: Intractable chronic migraine with aura and without status migrainosus Take 1 tablet (60 mg total) by mouth daily. 30 tablet 5 5 Active rizatriptan (MAXALT) 10 MG tabletIndications: Intractable chronic migraine with aura and without status migrainosus Take 1 tablet (10 mg total) by mouth once as needed for migraine (1 pill at start of migraine, may repeat once after 2 hours, max 2 pills over 24 hours). 9 tablet 5 5 Active Nerve Stimulator (Nerivio) DeviceIndications: Intractable chronic migraine with aura and without status migrainosus Apply 1 Device topically daily as needed (headache). Apply one 45 minute treatment with device within 60 minutes of migraine onset 1 each 5 5 Active proMETHAZINE (PHENERGAN) 25 MG tabletIndications: Intractable chronic migraine with aura and without status migrainosus Take 1 tablet (25 mg total) by mouth once as needed for nausea or vomiting. 10 tablet 3 5 Active rimegepant (Nurtec) 75 mg disintegrating tabletIndications: Common migraine with intractable migraine Take 1 tablet (75 mg total) by mouth once as needed for migraine. Maximum: 75 mg/24 hours 8 tablet 3 5 Active Active Problems No known active problems Encounters Date Type Department Care Team Description 10/04/2024 Orders Only [facility] - [address] [phone] Jose Nair MD Common migraine with intractable migraine (Primary Dx) 09/27/[address] [phone] Jose Nair MD 08/31/2024 8:45 AM EDT Office Visit [address] [phone] Jose Nair MD Intractable chronic migraine with aura and without status migrainosus (Primary Dx); Nausea; Allodynia 08/31/2024 Travel from Last 3 Months Social History Tobacco Use Types Packs/Day Years Used Date Smoking Tobacco: Never Assessed PHQ-2 Answer Date Recorded PHQ-2 Total Score 2 08/31/2024 Comments Unknown Sex and Gender Information Value Date Recorded Sex Assigned at Female 03/15/2024 3:07 PM EST Legal Sex Female 9:26 AM EDT Gender Identity Female 03/15/2024 3:07 PM EST Sexual Orientation Heterosexual (straight) 03/15 3:07 PM EST Last Filed Vital Signs Vital Sign Reading Time Taken Comments Blood Pressure 120/63 08/31/2024 9:05 AM EDT Pulse 98 08/31/2024 9:05 AM EDT Temperature - - Respiratory Rate 14 08/31/2024 9:05 AM EDT Oxygen Saturation 99% 08/31/2024 9:05 AM EDT Inhaled Oxygen Concentration - - Weight - - Height - - Body Mass Index - - Plan of Treatment Upcoming Encounters Date Type Department Care Team (Late st Contact Info) Description 01/23/2025 10:00 AM EST Office Visit [address] [phone] Health Maintenance Due Date Last Done Comments Hepatitis C Virus Screening 1976 HIV Screening 1989 DTaP/Tdap/Td Vaccines (1 - Tdap) 1995 Hepatitis B Vaccines (1 of 3 - 19+ 3-dose series) 1995 Pap Smear (Ages 21-65) 1997 Mammogram 2016 Colonoscopy 2021 Influenza Vaccine 10/07/2024 COVID-19 Vaccine (2023-2 5 season) 2024 Pneumococcal Vaccine: Pediat asia (0-5 Years) and At-Risk Patients (6 to 49 Years) Aged Out No longer eligible b ased on patient's age to complete this topic Insurance [facility] FEDERAL Care Teams Coding Clerk Relationship Specialty Start Date End Date Tiburcio Chau MD [address] [place] [address] PCP - General Internal Medicine 06/26/23
--- OUTSIDE RECORDS SUMMARY | 2024-11-22 18:35 | XMS_ITS | Encounter Summary ---
Author Organization [facility] Address [address] [place], [place] [id number] Care Team Providers Care Fast Food Shift Supervisor Name Role Phone Tiburcio Jackson MD Primary Care Provider [phone] Encounter Details Date Type Department Care Team (Late st Contact Info) Description 01/25/2024 Scanned Document [address] [phone] Jose Nair MD [address] [place] [address] Social History Tobacco Use Types Packs/Day [...] Description 01/23/2025 10:00 AM EST Office Visit [address] [phone] documented as of this encounter Visit Diagnoses Not on filedocumented in this encounter Care Teams Fast Food Shift Supervisor Relationship Specialty Start Date End Date Tiburcio Jackson MD [address] [place] [id number] PCP - General Internal Medicine 06/26/23 documented as of this encounter
--- OUTSIDE RECORDS SUMMARY | 2024-11-22 18:35 | XMS_ITS | Clinical Summary ---
Author Organization [facility] Address [address] [place] [address] Phone Care Team Providers Care Online Services Manager Name Role Phone Tiburcio Chau MD Primary Care Provider Medications Linzess 72 mcg capsuleIndicatio ns:Constipation, unspecified constipation type TAKE ONE CAPSULE BY MOUTH EVERY DAY 30 capsule 11/11/19 25 Active Linzess 72 mcg capsuleIndicatio ns:Constipation, unspecified constipation type TAKE ONE CAPSULE BY MOUTH EVERY DAY 30 capsule 10/11/19 25 025 Discontinued Encounters Date Type Department Care Team Description 10/28/2024 3:38 PM EDT - 10/28/2024 11:59 PM EDT Hospital Encounter [facility] CT Scan [address] [place] [address] Lung nodule Discharge Disposition: Home or Self Care from Last 3 Months Surgical History Surgery Date Site/Laterality Comments OTHER SURGICAL HISTORY 2020 Right PROCEDURE: HISTORY OTHER; COMMENT: Tendon repair right distal hand OTHER SURGICAL HISTORY 1986 PROCEDURE: HISTORY OTHER; COMMENT: Dental surgery APPENDECTOMY 1997 PROCEDURE: HISTORICAL APPENDECTOMY CHOLECYSTECTOMY 2017 PROCEDURE: HISTORICAL CHOLECYSTECTOMY OTHER SURGICAL HISTORY PROCEDURE: HISTORY OTHER; COMMENT: Endometrial ablation NECK SURGERY 02/17/2017 PROCEDURE: HISTORICAL NECK SURGERY; COMMENT: Left C7-T1 microdiscectomy, Dr. Figueroa Medical History Medical History Date Comments Migraines DX:Migraines PCOS (polycystic ovarian syndrome) DX:PCOS (polycystic ovarian syndrome) Marlo's thyroiditis DX:Carmina kenny's thyroiditis Social History Tobacco Use Types Packs/Day Years Used Date Smoking Tobacco: Never Smokeless Tobacco: Never Comments Unknown Sex and Gender Information Value Date Recorded Sex Assigned at Female 06/24/2024 2:17 PM EDT Legal Sex Female 1:22 AM EST Gender Identity Female 06/24/2024 2:17 PM EDT Sexual Orientation Straight 06/24/2024 2: 17 PM EDT Obstetrics History Last Filed Vital Signs Vital Sign Reading Time Taken Comments Blood Pressure - - Pulse - - Temperature - - Respiratory Rate - - Oxygen Saturation - - Inhaled Oxygen Concentration - - Weight 70.3 kg (155 lb) 12/16/2022 9:47 AM EDT Height 165.1 cm (5' 5 ) 12/16/2022 9:47 AM EDT Body Mass Index 25.79 12/16/2022 9:47 AM EDT Plan of Treatment Upcoming Encounters Date Type Department Care Team (Late st Contact Info) Description 12/15/2024 9:40 AM EDT Office Visit Gastroenterology - [address] [place] [address] Mirza Méndez PA [address] [place] [phone] Health Maintenance Due Date Last Done Comments Breast Cancer Screening 1976 DTaP,Tdap,and Td Vaccines (1 - Tdap) 1995 Hepatitis B Vaccines (1 of 3 - 19+ 3-dose series) 1995 Cervical Cancer Screening: Pap Smear 1997 HIV Screening 02/09/2022 Hepatitis C Screening 02/09/2022 Social Influencers of Health Screening 02/09/2022 Depression Screening 03/09/2024 COVID-19 Vaccine ( season) 2024 02/12/2023, 02/26/2021, 04/20/2020, Additional history exists Influenza Vaccine (#1) 2024 2, 12/05/2019, 02/08/2018, Additional history exists Colorectal Cancer Screening: Colonoscopy 02/15/2031 02/15/2021 Pneumococcal Vaccine: Pediatrics (0 to 5 Years) and At-Risk Patients (6 to 49 Years) Aged Out 01/30/2017 No longer eligible based on patient's age to complete this topic HIB Vaccines Aged Out No longer eligi ble based on patient's age to complete this topic HPV Vaccines Aged Out No longer eligi ble based on patient's age to complete this topic Hepatitis A Vaccines Aged Out No long er eligible based on patient's age to complete this topic IPV Vaccines Aged Out No longer eligi ble based on patient's age to complete this topic MMR Vaccines Aged Out No longer eligi ble based on patient's age to complete this topic Meningococcal ACWY Vaccine Aged Out N o longer eligible based on patient's age to complete this topic Meningococcal B Vaccine Aged Out No l onger eligible based on patient's age to complete this topic RSV Immunization Patients Under 20 months Aged Out No longer eligible based on patient's age to complete this topic Varicella Vaccines Aged Out No longer eligible based on patient's age to complete this topic Procedures Procedure Name Priority Date/Time Associated Diagnosis Comments CT CHEST WO CONTRAST Routine 10/28/2024 3:47 PM EDT Lung nodule EXTERNAL COLONOSCOPY REPORT Routine 02/15/2021 3:36 PM EST from Last 3 Months or Most Recently Relevant to Health Maintenance Results * CT Chest wo Contrast (10/28/2024 3:47 PM EDT) Anatomical Region Laterality Modality Body Computed Tomogra phy 11/03/2024 3:11 PM EDT Impressions 11/03/2024 3:17 PM EDT The small nodular filling defect in the trachea seen on the previous study is no longer present and was likely a focus of aspirated debris. -------- FINAL REPORT -------- Dictated By: Mehrdad Villasenor Dictated Date: 11/03/2024 15:11 ET Assigned Physician: Mehrdad Villasenor Reviewed and Electronically Signed By: Mehrdad Villasenor Signed Date: 11/03/2024 15:17 ET Workstation ID: [id number] Transcribed By: Self Edit Transcribed Date: 11/03/2024 15:11 ET Narrative 11/03/2024 3:17 PM EDT PROCEDURE: CT of the chest without intravenous contrast. TECHNIQUE: CT of the chest without intravenous contrast administration. Coronal and sagittal reformats and MIP reconstructions were created. Dose length product: 192 mGy-cm. HISTORY: SHORT TERM FOLLOW UP OF LUNG NODULE COMPARISON: 08/03/2024. FINDINGS: LUNGS/PLEURA: The central airways are clear and normal in caliber. The previously noted 2 mm nodular filling defect in the trachea has resolved and was likely a focus of aspirated debris. Mild scarring at the lung apices. Calcified granuloma in the right upper lobe. Small focus of segmental bronchial mucus plugging in the left upper lobe. No pleural effusion or pneumothorax. MEDIASTINUM/YASIR: Heterogeneous low-attenuation left thyroid nodule, similar to the comparison CT. The thyroid could be better evaluated with ultrasound. No mediastinal mass or lymphadenopathy. No appreciable hilar lymphadenopathy on limited noncontrast evaluation. VASCULATURE: Normal caliber pulmonary arteries. 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 Small focus of calcified atherosclerotic plaque in the aortic arch. CARDIAC: Normal heart size. No coronary artery calcification. CHEST WALL: No axillary or supraclavicular lymphadenopathy. LIMITED ABDOMEN: Cholecystectomy. 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 BONES: Mild degenerative changes of the spine. Procedure Note Mehrdad Villasenor MD - 11/03/2024 PROCEDURE: CT of the chest without intravenous contrast. TECHNIQUE: CT of the chest without intravenous contrast administration.Coronal and sagittal reformats and MIP reconstructions were created. Dose length product: 192 mGy-cm. HISTORY: SHORT TERM FOLLOW UP OF LUNG NODULE COMPARISON: 08/03/2024. FINDINGS: LUNGS/PLEURA: The central airways are clear and normal in caliber. Thepreviously noted 2 mm nodular filling defect in the trachea has resolvedand was likely a focus of aspirated debris. Mild scarring at the lungapices. Calcified granuloma in the right upper lobe. Small focus ofsegmental bronchial mucus plugging in the left upper lobe. No pleuraleffusion or pneumothorax. MEDIASTINUM/YASIR: Heterogeneous low-attenuation left thyroid nodule,similar to the comparison CT. The thyroid could be better evaluated withultrasound. No mediastinal mass or lymphadenopathy. No appreciable hilarlymphadenopathy on limited noncontrast evaluation. VASCULATURE: Normal caliber pulmonary arteries. 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 Small focus of calcifiedatherosclerotic plaque in the aortic arch. CARDIAC: Normal heart size. No coronary artery calcification. CHEST WALL: No axillary or supraclavicular lymphadenopathy. LIMITED ABDOMEN: Cholecystectomy. Stable 9 mm rim calcified splenicartery aneurysm. BONES: Mild degenerative changes of the spine. IMPRESSION: The small nodular filling defect in the trachea seen on the previous studyis no longer present and was likely a focus of aspirated debris. -------- FINAL REPORT -------- Dictated By: Mehrdad Villasenor Dictated Date: 11/03/2024 15:11 ET Assigned Physician: Mehrdad Villasenor Reviewed and Electronically Signed By: Mehrdad Villasenor Signed Date: 11/03/2024 15:17 ET Workstation ID: [id number] Transcribed By: Self Edit Transcribed Date: 11/03/2024 15:11 ET Tiburcio Chau MD IMG CT PROCEDURES Final Resu lt * External Colonoscopy Report (02/15/2021 3:36 PM EST) Anatomical Region Laterality Modality Endoscopy Historical Provider GI~PROCEDURE ORDERABLES F inal Result from Last 3 Months or Most Recently Relevant to Health [place] [id number] [facility] Care Teams Online Services Manager Relationship Specialty Start Date End Date Tiburcio Chau MD [address] [place] [address] PCP - General Internal Medicine 07/11/24
--- OUTSIDE RECORDS SUMMARY | 2024-11-22 18:35 | XMS_ITS | Clinical Summary ---
Author Organization [facility] Address [address] [place] [address] Care Team Providers Care Advisor Consultant Name Role Phone Vikram Walker MD Primary Care Provider [phone]- [phone] Social History Tobacco Use Types Packs/Day Years Used Date Smoking Tobacco: Never Assessed Comments Unknown Sex and Gender Information Value Date Recorded Sex Assigned at Not on file Legal Sex Female 4:50 AM EDT Gender Identity Not on file Sexual Orientation Not on file Plan of Treatment Health Maintenance Due Date Last Done Comments Cologuard 1976 Colon Cancer Screening 1976 Colonoscopy 1976 FOBT / Fit Test 1976 HIV Screening 1976 Sigmoidoscopy 1976 Hepatitis B Vaccines (1 of 3 - 19+ 3-dose series) 1995 DTaP,Tdap,and Td Vaccines (1 - Tdap) 1998 Alcohol/Substance Use Screening 03/09/2024 COVID-19 Vaccine ( - 2024- season) 2024 02/26/2021, 04/20/2020, 03/30/2020 Influenza Vaccine (#1) 2024 , 12/05/2019, 02/08/2018, Additional history exists RSV Vaccine (60+ years old and patients) (1 - 1-dose 75+ series) 2051 Pneumococcal Vaccine: Pediatric (0-5 Years) and At-Risk Patients (6-50 Years) Aged Out 01/30/2017 No longer eligible based on patient's age to complete this topic Insurance [facility] Care Teams Advisor Consultant Relationship Specialty Start Date End Date Vikram Walker MD PCP - General Neurology 12/11/22
== END 2024-11-22 16:02 | disposition home or self-care (01) ==
LOC: HO.HPS 14:57
PROVIDERS: PCP Internal Medicine; Referring Provider Internal Medicine; Visit Provider Hospitalist
DX: R06.02 Shortness of breath (principal); R06.2 Wheezing; R91.8 Other nonspecific abnormal finding of lung field; J21.9 Acute bronchiolitis, unspecified
CPT/HCPCS: 94060; 99204

== ENCOUNTER 2025-02-09 15:36 | Outpatient (AMB) | payer BC, SELFPAY ==
--- OUTSIDE RECORDS SUMMARY | 2025-01-23 06:31 | XMS_ITS ---
Author Organization [facility] Address [address] [place] [address] Care Team Providers Care Test Borer Name Role Phone BRITNEY HAIRSTON Primary Care Provider [phone] REASON FOR VISIT pancreatitis/ flu Encounters Encounter Location Date Provider Diagnosis [facility] [address] [place] [address] 01/23/2025 BRITNEY HAIRSTON PLAN OF TREATMENT No Information
--- OUTSIDE RECORDS SUMMARY | 2025-01-23 11:40 | XMS_ITS ---
Author Organization [facility] Address [address] [place] [address] Care Team Providers Care Welcome Center Agent Name Role Phone ISACBRITNEY Primary Care Provider RESULTS Component Value Reference Range Notes US Pelvic/Transvaginal and T ransabdominal Reviewed date:02/07/2025 10:44:39 AM Interpretation: Performing Lab: Notes/Report: US Pelvic/Transvaginal and T ransabdominal Reviewed date:02/07/2025 10:44:39 AM Interpretation: Performing Lab: Notes/Report: REASON FOR VISIT (2)lfts Encounters Encounter Location Date Provider Diagnosis [facility] [address] [place] [address] 01/23/2025 BRITNEY CHAU Generalized abdomina l pain R10.84 ASSESSMENTS Encounter Date Diagnosis Assessment Notes Treatment Notes Treatment Clinical Notes Section Notes 01/23/2025 Generalized abdominal pain (ICD-10 - R10.84) PLAN OF TREATMENT No Information
--- OUTSIDE RECORDS SUMMARY | 2025-01-25 01:34 | XMS_ITS ---
Author Organization [facility] Address [address] [place] [address] Care Team Providers Care Performance Manager Name Role Phone BRITNEY CHAU Primary Care Provider REASON FOR VISIT add on Encounters Encounter Location Date Provider Diagnosis [facility] [address] [place] [address] 01/25/2025 BRITNEY CHAU Other proteinuria R80.8 and Elevated LFTs R79.89 ASSESSMENTS Encounter Date Diagnosis Assessment Notes Treatment Notes Treatment Clinical Notes Section Notes 01/25/2025 Other proteinuria (ICD-10 - R80.8) 01/25/2025 Elevated LFTs (ICD-10 - R79.89) PLAN OF TREATMENT Future Test Test Name Order Date KENDAL by IFA Rfx Titer/Pattern-[id number] 01/07 Hep A Ab, Total-[id number] 01/25/2025 Ferritin, (Serial)-[id number] 01/25/2025 Iron and TIBC-[id number] 01/25/2025 Hep B Core Ab, IgM-[id number] 01/25/2025 GGT-[id number] 01/25/2025 Hep B Surf Ag, Screen-[id number] 01/25/2025 HCV Antibody-[id number] 01/25/2025
--- OUTSIDE RECORDS SUMMARY | 2025-01-25 01:39 | XMS_ITS ---
Author Organization [facility] Address [address] [place] [address] Care Team Providers Care Air Bag Buffer Name Role Phone BRITNEY CHAU Primary Care Provider [phone] Encounters Encounter Location Date Provider Diagnosis [facility] [address] [place] [address] 01/25/2025 BRITNEY CHAU Asymptomatic proteinuria R80.9 ASSESSMENTS Encounter Date Diagnosis Assessment Notes Treatment Notes Treatment Clinical Notes Section Notes 01/25/2025 Asymptomatic proteinuria (ICD-10 - R80.9) PLAN OF TREATMENT Future Test Test Name Order Date Urinalysis, Routine-[id number] 01/28/2025
--- OUTSIDE RECORDS SUMMARY | 2025-01-25 03:41 | XMS_ITS ---
Author Organization [facility] Address [address] [place] [address] Care Team Providers Care Intraoperative Neuro Tech Name Role Phone BRITNEY CHAU Primary Care Provider PROBLEMS Problem Type ICD Code Onset Dates Problem Status W/U Status Risk SNOMED Code Notes Problem Leukopenia, unspecified type (D72.819) Active confirmed [id number] Encounters Encounter Location Date Provider Diagnosis [facility] [address] [place] [address] 01/25/2025 BRITNEY CHAU Leukopenia, unspecified type D72.819 ASSESSMENTS Encounter Date Diagnosis Assessment Notes Treatment Notes Treatment Clinical Notes Section Notes 01/25/2025 Leukopenia, unspecified type (ICD-10 - D72.819) PLAN OF TREATMENT No Information
--- OUTSIDE RECORDS SUMMARY | 2025-01-29 09:04 | XMS_ITS ---
Author Organization [facility] Address [address] [place] [address] Care Team Providers Care Applied Statistician Name Role Phone BRITNEY CHAU Primary Care Provider REASON FOR REFERRAL Reason 01/30/25 w appt Refe rral/consultation Dr[facility] gastro[facility] Diagnosis 1 Acute pancreatitis, unspecified complication status, unspecified pancreatitis type (K85.90) Referral Organization [facility] Referring Provider First Name BRITNEY Referring Provider Last Name ISAC Referring Provider Speciality Internal M edicine Referred Provider Specialty Gastroentero logy General Notes Chantale ANDERSON Admin 11:44:51 AM > faxed medical referral, note and most recent labs to [facility] at [phone]>no referral required>faxed separately is, 01/20/2025HN/EDNotesDr Brandie Referral Priority Routine REASON FOR VISIT request for test please Encounters Encounter Location Date Provider Diagnosis [facility] [address] [place] [address] 01/29/2025 BRITNEY CHAU Acute pancreatitis, unspecified complication status, unspecified pancreatitis type K85.90 ASSESSMENTS Encounter Date Diagnosis Assessment Notes Treatment Notes Treatment Clinical Notes Section Notes 01/29/2025 Acute pancreatitis, unspecified complication status, unspecified pancreatitis type (ICD-10 - K85.90) PLAN OF TREATMENT Pending Test Test Name Order Date MRCP 01/29/2025 Referrals Referral Date Details 01/30/25 w appt Refe rral/consultation Dr[facility] Consultation Request Notes Referral Date Referring Provider Referred Provider Not es 01/30/2025 BRITNEY CHAU , 01/30/25 w a ppt Referral/consultation Dr. [facility] gastroenter[facility]
--- OUTSIDE RECORDS SUMMARY | 2025-01-31 01:25 | XMS_ITS ---
Author Organization [facility] Address [address] [place] [address] Care Team Providers Care Agricultural Research Technician Name Role Phone BRITNEY CHAU Primary Care Provider REASON FOR VISIT (2)lfts Encounters Encounter Location Date Provider Diagnosis [facility] [address] [place] [address] 01/31/2025 BRITNEY CHAU Elevated LFTs R79.89 ASSESSMENTS Encounter Date Diagnosis Assessment Notes Treatment Notes Treatment Clinical Notes Section Notes 01/31/2025 Elevated LFTs (ICD-10 - R79.89) PLAN OF TREATMENT Future Test Test Name Order Date Hepatic Function Panel [id number] 2024
--- OUTSIDE RECORDS SUMMARY | 2025-02-07 05:43 | XMS_ITS ---
Author Organization [facility] Address [address] [place] [address] Care Team Providers Care Learning Developer Name Role Phone BRITNEY CHAU Primary Care Provider [phone] REASON FOR VISIT (w) US results / ? MRI Encounters Encounter Location Date Provider Diagnosis [facility] [address] [place] [address] 02/07/2025 BRITNEY CHAU PLAN OF TREATMENT No Information
--- OUTSIDE RECORDS SUMMARY | 2025-02-07 09:39 | XMS_ITS ---
Author Organization [facility] Address [address] [place] [address] Care Team Providers Care Tool Dresser Name Role Phone BRITNEY CHAU Primary Care Provider REASON FOR VISIT Patient at [facility] Encounters Encounter Location Date Provider Diagnosis [facility] [address] [place] [address] 02/07/2025 BRITNEY CHAU PLAN OF TREATMENT No Information
--- OUTSIDE RECORDS SUMMARY | 2025-02-08 11:25 | XMS_ITS ---
Author Organization [facility] Address [address] [place] [address] Care Team Providers Care Or Scrub Tech Name Role Phone BRITNEY CHAU Primary Care Provider [phone] REASON FOR VISIT trying to get appt w/OBGYN Encounters Encounter Location Date Provider Diagnosis [facility] [address] [place] [address] 02/08/2025 BRITNEY CHAU PLAN OF TREATMENT No Information
[2025-02-09 15:41] VITALS: BP 96/50; PULSE 89; O2SAT 100; BMI 25.7
--- NOTE | 2025-02-09 15:41 | MHC.OFFVIS ---
Vital Signs 02/09/25 15:41 Height 5 ft 5 in Weight 154 lb 5.177 oz BMI 25.7 BP 96/50 L Blood Pressure Location Rt brachial Position Sitting Pulse 89 Pulse Source Pulse Oximeter Pulse Oximetry (%) 100 Oxygen Delivery Method Room Air Intake Visit Reasons: Pulmonary Nodule Multi Mission Helicopter Aircrewman Required: No Accompanied by: Self / Same As Patient Allergies acetazolamide Allergy (Unknown, Verified 02/09/25 15:43) Unknown furosemide Allergy (Unknown, Verified 02/09/25 15:43) Unknown topiramate (From Topamax) Allergy (Unknown, Verified 02/09/25 15:43) Unknown Bactrim Allergy (Unknown, Uncoded 04/11/22 09:11) unknown HPI Comments Details: The patient is a 49 year woman presenting with worsening respiratory symptoms. The patient states that at some point she did have a CT scan of the the abdomen because of her GI issues that noted to have some irregularities on the lung windows. Therefore she did undergo a formal CT scan of the chest at [facility]. I do not have the actual images with the initial report. Per report was mentioned that she did have some tree-in-bud suggesting bronchiolitis. She did see Pulmonary at that point and she did undergo pulmonary function studies. The patient ultimately after that developed COVID. After COVID though her respiratory symptoms worsen when she started developing intermittent shortness of breath chest tightness in addition to difficulty breathing in. She patient was given a rescue inhaler without any significant improvement. Ultimately she had repeat CT scans of the chest. She had a CAT scan in a July 2024 demonstrating a new nodular density within the trachea in addition to other stable pulmonary nodules and granuloma. Ultimately I do not appreciate any reports of tree-in-bud and that report. Although I have not seen the images. She had a repeat CAT scan 3 months later and then the endotracheal density had been resolved likely mucus. The other nodules are stable. The patient in the office we had her do a spirometry both pre and post and the patient has spirometry flow volume loop were normal. On exam though she did have some forced exhalation wheezing. The patient did not have any significant response to bronchodilators. At this point she has been using Symbicort. She has not seen any significant significant dramatic improvement with the Symbicort but she wants to give it a good try. I did provide her a spacer so we can get the Symbicort deliver to the small airways. The patient also will have undergo blood work to assess for inflammatory changes that could occur and also hypersensitivity reactions and allergies that may be indeed precipitated by her last COVID infection. We briefly spoke about a methacholine challenge has a good opportunity to further address the question of asthma hyper reactive airways. The patient will continue with the Symbicort with a spacer. She also has a peak flow that she is going to monitor her peak flows specially when she is having hard time. And will review her blood work in addition to the images of her CAT scans and her response to therapy on the next visit. 02/09/2025 the patient is here for pulmonary follow-up visit. The patient overall is doing okay. Although she did develop the flu and then after the flu she develop significant abdominal discomfort where she went to [facility]. She was diagnosed with pancreatitis. She had a CT scan of the abdomen there. I did personally review at least the lung windows demonstrating normal lung parenchyma. No evidence of any interstitial disease. No nodular densities. We again looked at the report from her CAT scan from [facility] from October 2024 demonstrating a small 2 mm pulmonary nodule which appears to be calcified and also some mucus plugging. Will again request for the images to review them. But at this time will plan to repeat a CAT scan October of 2025. The patient has been using the Symbicort. Seems to be fair. No significant change. She did undergo pulmonary function studies demonstrating normal lung mechanics normal capacity. Therefore this point she can just uses Symbicort that she has as needed. If any symptoms reoccur we can consider methacholine challenge. The patient will return sometime in the fall after her CAT scan to review. If she develops any issues prior to this she can always call for further recommendations. [facility] Medical History (Updated 11/22/24 @ 21:37 by Ash Hsu MD) Bronchiolitis Pulmonary nodules Wheezing Dyspnea Allergies Social History Alcohol intake: unknown Patient Tobacco Use Status: Never used Tobacco Review of Systems Const Denies fever(s) Eyes Reports no additional complaints ENT Reports no additional complaints, Reports neck pain and Denies throat swelling Card Denies chest pain, Denies dyspnea and Denies dyspnea on exertion Resp Denies chest congestion, Reports cough, Denies hemoptysis, Denies dyspnea and Denies dyspnea on exertion GI Reports as per HPI and Reports abdominal pain Musc Reports back pain and Reports neck pain Skin/Breast Denies rash Neuro Reports no additional complaints Endo Reports no additional complaints Gonzalo/Lymph Reports no additional complaints Aller/Immun Denies urticaria and Denies throat swelling Physical Exam Vital Signs: Last Vital Signs Pulse 89 02/09/25 15:41 BP 96/50 L 02/09/25 15:41 Pulse Ox 100 02/09/25 15:41 Oxygen Delivery Method Room Air 02/09/25 15:41 BMI result Body Mass Index 25.7 Const General: comfortable HEENT Head: Yes normocephalic Neck Neck: Yes supple Chest Chest palpation & inspection: normal inspection of the chest Resp Effort & Inspection: normal respiratory effort Auscultation: wheezes expiratory wheezes (on force exhalation) Cardio Rate: regular rate Rhythm: regular rhythm Heart sounds: S1 normal heart sound present and S2 normal heart sound present GI Palpation (GI): Soft to palpation Skin General skin exam: no rashes or lesions noted Extrem General: Yes no clubbing, cyanosis or edema Assessment & Plan Assessment & Plan (1) Dyspnea: Code(s): R06.00 - Dyspnea, unspecified Category: Medical Qualifiers: Dyspnea type: shortness of breath Qualified Code(s): R06.02 - Shortness of breath (2) Wheezing: Code(s): R06.2 - Wheezing Category: Medical (3) Pulmonary nodules: Code(s): R91.8 - Other nonspecific abnormal finding of lung field Category: Medical (4) Bronchiolitis: Code(s): J21.9 - Acute bronchiolitis, unspecified Category: Medical Plan Continue Symbicort, provided spacer as needed Peak flow meter Requesting CT chest images from [facility] to review PFTs scheduled at [facility] in December-normal Consider methacholine challenge repeat CT chest 10/2025 F/U Fall 2025 Orders: Orders CT chest wo IV con 10/16/25 R91.8 - Other nonspecific abnormal finding of lung field Coding Level of Care Code Est Pt Level 4 (84382) Diagnoses Shortness of breath R06.02 Dyspnea type: shortness of breath Wheezing R06.2 Pulmonary nodules R91.8 Bronchiolitis J21.9 Time Spent (min) 17
--- OUTSIDE RECORDS SUMMARY | 2025-02-09 21:40 | XMS_ITS | Encounter Summary ---
Author Organization [facility] Address [address] [place], [place] [id number] Care Team Providers Care Hall Monitor Name Role Phone Tiburcio Jackson MD Primary Care Provider Encounter Details Date Type Department Care Team (Late st Contact Info) Description 06/26/2023 Scanned Document [address] [phone] Jose Nair MD [address] [place] [id number] Social History Tobacco Use Types Packs/Day [...] Care Team (Late st Contact Info) Description 04/17/2025 8:00 AM EST Office Visit [address] [phone] documented as of this encounter Visit Diagnoses Not on filedocumented in this encounter Care Teams Hall Monitor Relationship Specialty Start Date End Date Tiburcio Jackson MD [address] [place] [phone] PCP - General Internal Medicine 06/26/23 documented as of this encounter
--- OUTSIDE RECORDS SUMMARY | 2025-02-09 21:40 | XMS_ITS | Encounter Summary ---
Author Organization [facility] Address [address] [place], [place] [id number] Care Team Providers Care Environmental Air Specialist Name Role Phone Tiburcio Jackson MD Primary Care Provider Encounter Details Date Type Department Care Team (Late st Contact Info) Description 10/14/2023 Scanned Document [address] [phone] Jose Nair MD [address] [place] [id number] Social History Tobacco Use Types Packs/Day [...] Description 04/17/2025 8:00 AM EST Office Visit [address] [phone] documented as of this encounter Visit Diagnoses Not on filedocumented in this encounter Care Teams Environmental Air Specialist Relationship Specialty Start Date End Date Tiburcio Jackson MD [address] [place] [phone] PCP - General Internal Medicine 06/26/23 documented as of this encounter
--- OUTSIDE RECORDS SUMMARY | 2025-02-09 21:40 | XMS_ITS | Encounter Summary ---
Author Organization [facility] Address [address] [place], [place] [id number] Care Team Providers Care Aircraft Instrument Tester Name Role Phone Tiburcio Jackson MD Primary Care Provider Encounter Details Date Type Department Care Team (Late st Contact Info) Description 01/25/2024 Scanned Document [address] [phone] Jose Nair MD [address] [place] [address] Social History Tobacco Use Types Packs/Day [...] Description 04/17/2025 8:00 AM EST Office Visit [address] [phone] documented as of this encounter Visit Diagnoses Not on filedocumented in this encounter Care Teams Aircraft Instrument Tester Relationship Specialty Start Date End Date Tiburcio Jackson MD [address] [place] [phone] PCP - General Internal Medicine 06/26/23 documented as of this encounter
--- OUTSIDE RECORDS SUMMARY | 2025-02-09 21:41 | XMS_ITS | Clinical Summary ---
Author Organization [facility] Address [address] [place] [address] Care Team Providers Care Charging Car Operator Name Role Phone Tiburcio Jackson MD Primary Care Provider Allergies Active Allergy [...] Active Active Problems No known active problems Social History Tobacco Use Types Packs/Day Years [...] Description 04/17/2025 8:00 AM EST Office Visit [address] [phone] Health Maintenance Due Date Last Done Comments Hepatitis C Virus Screening 1976 HIV Screening 1989 DTaP/Tdap/Td Vaccines (1 - Tdap) 1995 Hepatitis B Vaccines (1 of 3 - 19+ 3-dose series) 1995 Pap Smear (Ages 21-65) 1997 Mammogram 2016 Colonoscopy 2021 Influenza Vaccine 10/07/2024 COVID-19 Vaccine ( - 2023-2 5 season) 2024 Pneumococcal Vaccine: Pediat asia (0-5 Years) and At-Risk Patients (6 to 49 Years) Aged Out No longer eligible b ased on patient's age to complete this [place] [phone] [facility] [employer] Care Teams Charging Car Operator Relationship Specialty Start Date End Date Tiburcio Jackson MD [address] [place] [address] PCP - General Internal Medicine 06/26/23
--- OUTSIDE RECORDS SUMMARY | 2025-02-09 21:42 | XMS_ITS | Patient Health Record ---
Author Organization [facility] Address [address] [place] [address] Care Team Providers Care Sr Vice President Name Role Phone BRITNEY CHAU Primary Care Provider [phone] RONAK CAMPBELL [phone] ALLERGIES Allergen (clinical drug ingredient) Drug/Non Drug Allergy documented on EMR Reaction Allergy Type Onset Date Status sulfamethoxazole / trimethoprim Bactrim Unknown Drug Allergy Active Claritin hives/ tongue swelling Drug Allergy Active ZyrTEC Allergy hives/tongue swelling Drug Allergy Active acetazolamide acetaZOLAMIDE Unknown Drug Allergy Active furosemide Furosemide Unknown Drug Allergy Activ e Latex Latex Unknown Allergy Active Substance with sulfonamide structure and antibacterial mechanism of action (substance) Sulfa Antibiotics Unknown Drug Allergy Active topiramate Topiramate Unknown Drug Allergy Activ e REASON FOR REFERRAL Reason NOTED IN CHART [facility] headache clinic. Recurrent headaches. Patient can call make appointment Diagnosis 1 Recurrent headache ( R51.9) Referral Organization [facility] Referring Provider First Name BRITNEY Referring Provider Last Name ISAC Referring Provider Speciality Internal edicine General Notes Regina ANDERSON Orthotic Practitioner 01/04/2025 01:01:04 PM > 08/31/24 note in chart and reviewed by provider., Chantale ANDERSON Admin 01/12/2025 09:18:18 AM > nrr>encounter closed Referral Priority Routine Referral Appointment Date 08/31/[address] Dennison on allergy in [place] send copy my note over to him Diagnosis 1 Multiple allergies ( Z88.9) Referral Organization [facility] Referring Provider First Name BRITNEY Referring Provider Last Name ISAC Referring Provider Speciality Internal edicine Referral Priority Routine Reason NOTE IN CHART Referr al [place] referral [facility] for colonoscopy talk Diagnosis 1 Colon cancer screeni ng (Z12.11) Referral Organization [facility] Referring Provider First Name BRITNEY Referring Provider Last Name ISAC Referring Provider Speciality Internal edicine Referred Provider Specialty Gastroentero logy General Notes Regina ANDERSON Orthotic Practitioner 01/15/2025 03:27:45 PM > 12/15/24 Note in chart and reviewed by provider. Referral Priority Routine Referral Appointment Date 12/15/2024 Reason 08/05/24 w appt Refe rral to Dr. Cole Bonner for abnormal chest CT. Send my last note and the most recent CAT scan results and chest x-ray along with labs to him Diagnosis 1 Abnormal computerize d axial tomography of chest (R93.89) Referral Organization [facility] Referring Provider First Name BRITNEY Referring Provider Last Name ISAC Referring Provider Speciality Internal edicine Referred Provider IVANA ARIAS Referred Provider Specialty Pulmonary Di seases General Notes JUSTIN,Chantale P Admin 10:20:02 AM > faxed medical referral, notes and most recent lab work>also faxed separately is 08/03/24 CT of chest Referral Priority Urgent Reason R011/09/24 w appt [facility] rral [facility] Dr. Beau Hou for evaluation of splenic artery aneurysm on CAT scan incidental finding Diagnosis 1 Splenic artery aneur ysm (I72.8) Referral Organization [facility] Referring Provider First Name BRITNEY Referring Provider Last Name ISAC [facility] Referred Provider Specialty Vascular Fanta albert General Notes JUSTIN,Chantale P Admin 05/2024 08:53:47 AM > faxed medical referral, note andmost recent labs to [phone]>NO REFERRAL REQUIRED Referral Priority Routine Reason 12/22/24 w appt Refe rral to [facility] due for colonoscopy in April 2025 patient will call Diagnosis 1 Colon cancer screeni ng (Z12.11) Referral Organization [facility] Referring Provider First Name BRITNEY Referring Provider Last Name ISAC Referring Provider Speciality Internal edicine Referred Provider SABA IBRAHIM Referred Provider Specialty Gastroentero logy General Notes JUSTIN,Chantale P Admin 04:16:46 PM > faxed medical referral, note and most recent labs to [phone] Referral Priority Routine Reason 01/30/25 w appt Refe rral/consultation Dr. Temple gastroenterology Diagnosis 1 Acute pancreatitis, unspecified complication status, unspecified pancreatitis type (K85.90) Referral Organization [facility] Referring Provider First Name BRITNEY Referring Provider Last Name ISAC Referring Provider Speciality Internal M edicine Referred Provider Specialty Gastroentero logy General Notes Chantale ANDERSON Admin 11:44:51 AM > faxed medical referral, note and most recent labs to [facility] at [phone]>no referral required>faxed separately is, 5BHN/EDNotnoe, Dr Brandie Temple Referral Priority Routine MEDICATIONS Medication SIG (Take, Route, Frequency, Duration) Notes Start Date End Date Status Divalproex Sodium ER 500 MG TAKE ONE TABLET BY MOUTH TWICE A DAY for 90 Active Tylenol 325 MG 1 capsule as needed Orally every 6 hrs Active Promethazine HCl 25 MG TAKE ONE TABLET B Y MOUTH EVERY 6 HOURS NEEDED FOR 5 DAYS orally every 6 hrs for 5 days prn Active Magnesium 400 MG as directed Orally twice a day bid Active Docusate Sodium 100 MG 1 capsule as need ed Orally Once a day for 30 day(s) Active Linzess 72 MCG 1 capsule at least 30 minutes before the first meal of the day on an empty stomach Orally Once a day for 30 day(s) Active Cyclobenzaprine HCl 5 MG TAKE ONE TABLET BY MOUTH DAILY AT BEDTIME for 30 Active Budesonide-Formoterol Fumarate 80-4.5 MCG/ACT 2 puffs Inhalation BID 10/05/2024 Active Fioricet 50-300-40 MG 1 capsule as neede d Orally every 4 hrs prn Active Albuterol Sulfate 108 (90 Base) MCG/ACT 1 puff as needed Inhalation every 4 hrs for 30 days 09/14/2024 Active Excedrin Extra Strength 250-250-65 MG 2 tablets Orally Once a day for 30 day(s) prn Active Calcium 600+D 600-400 MG-UNIT 1 tablet with a meal Orally Once a day for 30 day(s) Active Riboflavin 100 MG 2 tablet Orally twice a day Active Xifaxan 550 MG 1 tablet Orally Twice a day for 30 day(s) three times a day Active Therapeutic Multivit/Mineral - 1 tab(s) orally once a day for 30 day(s) Active Nurtec 75 MG 1 tablet on the tongue and allow to dissolve Orally Active Diclofenac Sodium 75 MG TAKE ONE TABLET BY MOUTH TWICE A DAY for 30 orn Active Ibuprofen 200 MG 1 tablet with food or milk as needed Orally as needed Active Levothyroxine Sodium 88 MCG 1 tabs orally 6 days and two tabs on thursday for 90 days Active SOCIAL HISTORY Tobacco Use: Social History Observation Description Date Details (start date - stop date) Never Smoker NA - NA Sex Assigned At : Social History Observation Description Sex Assigned At Unknown Smoking Question Answer Notes Are you a: never smoker PROBLEMS Problem Type ICD Code Onset Dates Problem Status W/U Status Risk SNOMED Code Notes Problem Thyroid nodule (241.0) Active confirmed Thyroid nodule (492276109) Problem Hypothyroidism (acquired) (244.9) Active confirmed Hypothyroidism (71242076) Problem Polycystic ovarian disease (256.4) Active confirmed Polycystic ovar y syndrome (disorder) (153400437) Problem Orthostatic hypotension (458.0) Active confirmed Orthostatic hypotension (74414371) Problem 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 Marlo's disease (40405522) Problem Vitamin D deficiency (E55.9) Active confirmed Vitamin D deficiency (34350838) Problem Gastro-esophageal reflux disease without esophagitis (K21.9) Active confirmed Gastro-esophage al reflux disease without esophagitis (261073048) Problem Thyroid nodule (E04.1) Active confirmed 844317843 Problem PCOS (polycystic ovarian syndrome) (E28.2) Active confirmed 59134865 Problem 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) Active confirmed 04335653 Problem Acquired hypothyroidism (E03.9) Active confirmed 282922042 Problem Disorder of lipoprotein metabolism, unspecified (E78.9) Active confirmed Disorder of lipoprotein storage and metabolism (disorder) (695991184) Problem Multiple allergies (Z88.9) Active confirmed 916546899 Problem Lung nodule (R91.1) Active confirmed 651921477 Problem Intractable migraine with aura with status migrainosus (G43.111) Active confirmed 556278203 Problem Leukopenia, unspecified type (D72.819) Active confirmed 49613162 Problem Parathyroid abnormality (E21.5) Active confirmed 79838649 Problem Acute midline low back pain with right-sided sciatica (M54.41) Active confirmed 332901131 Problem Splenic artery aneurysm (I72.8) Active confirmed 48846253 Problem Bulging lumbar disc (M51.36) Active confirmed 766740613 Problem Refractory migraine (G43.919) Active confirmed 270732009 Problem Abnormal computerized axial tomography of chest (R93.89) Active confirmed 86769135779228780 VITAL SIGNS Blood pressure diastolic 83 mm Hg 12/22/2024 Height 64 in 12/22/2024 Blood pressure systolic 130 mm Hg 12/22/2024 Weight 154 lbs 12/22/2024 BMI 26.43 kg/m2 12/22/2024 Encounters Encounter Location Date Provider Diagnosis [address] [address] 02/10/2024 BRITNEY CHAU [address] [address] 03/08/2024 BRITNEY CHAU [place] [id number] 03/15/2024 BRITNEY CHAU Recurrent headache R51.[address] [address] 03/28/2024 BRITNEY CHAU Multiple allergies Z88.[address] [address] 04/04/2024 BRITNEY CHAU [address] [address] 06/22/2024 BRITNEY CHAU Acquired hypothyroidism E03.9 ; Thyroid nodule E04.1 ; PCOS (polycystic ovarian syndrome) E28.2 ; High serum parathyroid hormone (PTH) R79.89 ; Disorder of lipoprotein metabolism, unspecified E78.9 ; Gastro-esophageal reflux disease without esophagitis K21.9 ; Colon cancer screening Z12.11 ; Encounter for screening mammogram for malignant neoplasm of breast Z12.31 ; Bradycardia R00.1 and Lung nodules R91.[address] [address] 07/11/2024 BRITNEY CHAU [place] [id number] 08/04/2024 BRITNEY CHAU Abnormal computerize d axial tomography of chest R93.[address] [address] 08/12/2024 BRITNEY ISAC [facility] [address] [place] [address] 08/12/2024 BRITNEY CHAU [facility] [address] [place] [address] 08/22/2024 BRITNEY CHAU [facility] [address] [place] [address] 09/14/2024 BRITNEY CHAU [facility] [address] [place] [address] 09/14/2024 BRITNEY CHAU [facility] [address] [place] [address] 09/14/2024 BRITNEY CHAU [facility] [address] [place] [address] 09/15/2024 BRITNEY CHAU [facility] [address] [place] [address] 09/26/2024 BRITNEY CHAU Lung nodule R91.[address] [address] 10/04/2024 BRITNEY CHAU [facility] [address] [place] [address] 10/05/2024 RONAK CAMPBELL Shortness of breath R06.02 ; Chest tightness R07.89 and Abnormal computerized axial tomography of chest R93.[address] [address] 10/05/2024 BRITNEY CHAU [address] [address] 11/04/2024 BRITNEY CHAU Splenic artery aneurysm I72.[address] [address] 11/22/2024 BRITNEY CHAU [facility] [address] [place] [address] 12/22/2024 BRITNEY CHAU Acquired hypothyroidism E03.9 ; Thyroid nodule E04.1 ; Parathyroid abnormality E21.5 ; Disorder of lipoprotein metabolism, unspecified E78.9 ; Gastro-esophageal reflux disease without esophagitis K21.9 ; Colon cancer screening Z12.11 ; Encounter for screening mammogram for malignant neoplasm of breast Z12.31 and History of IBS Z87.[address] [address] 01/23/2025 BRITNEY CHAU [address] [address] 01/23/2025 BRITNEY CHAU Generalized abdomina l pain R10.[address] [address] 01/25/2025 BRITNEY CHAU Other proteinuria R80.8 and Elevated LFTs R79.89 [place] [id number] 01/25/2025 BRITNEY CHAU Asymptomatic proteinuria R80.9 [place] [id number] 01/25/2025 BRITNEY CHAU Leukopenia, unspecified type D72.819 [place] [id number] 01/29/2025 BRITNEY CHAU Acute pancreatitis, unspecified complication status, unspecified pancreatitis type K85.90 [place] [address] 01/31/2025 BRITNEY CHAU Elevated LFTs R79.89 [address] 02/07/2025 BRITNEY CHAU [place] [address] 02/07/2025 BRITNEY CHAU [place] [address] 02/08/2025 BRITNEY CHAU ASSESSMENTS Encounter Date Diagnosis Assessment Notes Treatment Notes Treatment Clinical Notes Section Notes 06/22/2024 Thyroid nodule (ICD-10 - E04.1) As above 01/31/2025 Elevated LFTs (ICD-10 - R79.89) 01/29/2025 Acute pancreatitis, unspecified complication status, unspecified pancreatitis type (ICD-10 - K85.90) 01/25/2025 Leukopenia, unspecified type (ICD-10 - D72.819) 01/25/2025 Asymptomatic proteinuria (ICD-10 - R80.9) 01/25/2025 Other proteinuria (ICD-10 - R80.8) 01/23/2025 Generalized abdominal pain (ICD-10 - R10.84) 11/04/2024 Splenic artery aneurysm (ICD-10 - I72.8) 10/05/2024 Chest tightness (ICD-10 - R07.89) see shortness of breath 10/05/2024 Shortness of breath (ICD-10 - R06.02) continues to have shortness of breath despite albuterol use; up to sometimes 3-4 times a day; sats normal. She is scheduled for CT scan of chest in 12/01 and has pulm appt with Dr scherer in 12/01 as well .EKG is normal, sinus rhytm; no acute changes; Will do furhter cardiopulmonary work up including echo, stress test and PFT. Will also trial low dose symbicort to see if this makes any impact. Rinse out mouth after each use. TO call or portal with any concerns. 09/26/2024 Lung nodule (ICD-10 - R91.1) 08/04/2024 Abnormal computerized axial tomography of chest (ICD-10 - R93.89) 12/22/2024 Acquired hypothyroidism (ICD-10 - E03.9) Stable. Follow-up with endocrine in [place]. Is evaluated every 6 to 12 months up-to-date on ultrasounds. Check TSH continue above medication 12/22/2024 Thyroid nodule (ICD-10 - E04.1) As above follow-up with endocrinology biopsy has been negative for following up regular ultrasounds as well 03/28/2024 Multiple allergies (ICD-10 - Z88.9) 03/15/2024 Recurrent headache (ICD-10 - R51.9) 06/22/2024 Acquired hypothyroidism (ICD-10 - E03.9) Patient occasionally has compressive symptoms with the left lobe enlargement. Biopsy has been negative in the past. She was told by endocrine that if symptoms persisted or worsened regarding compressive symptoms that she would have to see Dr. hector for probable thyroidectomy check TSH 12/22/2024 Parathyroid abnormality (ICD-10 - E21.5) Check your calcium and parathyroid level follow-up with endocrine PTH and calcium normal in June recheck 6 months 01/25/2025 Elevated LFTs (ICD-10 - R79.89) 06/22/2024 PCOS (polycystic ovarian syndrome) (ICD-10 - E28.2) Stable follow-up [facility] REPRESENTATIVE q. year 12/22/2024 Disorder of lipoprotein metabolism, unspecified (ICD-10 - E78.9) Total cholesterol less than 200 LDL less than 100 therefore goal 10/05/2024 Abnormal computerized axial tomography of chest (ICD-10 - R93.89) ? mucous plugging in trachea. she is scheduled for rpt CT scan 11/16/24. 06/22/2024 High serum parathyroid hormone (PTH) (ICD-10 - R79.89) Check calcium check PTH 06/22/2024 Disorder of lipoprotein metabolism, unspecified (ICD-10 - E78.9) Check lipid profile total cholesterol goals 200 LDL less than 100 check CRP for restratification low-fat Mediterranean diet recommended 12/22/2024 Gastro-esophageal reflux disease without esophagitis (ICD-10 - K21.9) Stable continue as needed PPI 06/22/2024 Gastro-esophageal reflux disease without esophagitis (ICD-10 - K21.9) 12/22/2024 Colon cancer screening (ICD-10 - Z12.11) Referral placed to [facility] for colonoscopy talk patient due in the winter of this year 06/22/2024 Colon cancer screening (ICD-10 - Z12.11) Doing well continue Linzess for bowel regularity. Due for colonoscopy this coming 12/22/2024 Encounter for screening mammogram for malignant neoplasm of breast (ICD-10 - Z12.31) Rx given to patient for mammogram scheduling 06/22/2024 Encounter for screening mammogram for malignant neoplasm of breast (ICD-10 - Z12.31) 12/22/2024 History of IBS (ICD-10 - Z87.19) Patient on both xifaxan and Linzess. The former 1 status started last week patient we following up closely with GI seems to have been helping the situation today 06/22/2024 Bradycardia (ICD-10 - R00.1) Stable no symptoms check EKG sinus rhythm no change 06/22/2024 Lung nodules (ICD-10 - R91.8) 12/22/2024 Other Migraines are s till pretty regular but more tolerable less intense and less frequent getting approximately 6 to 7/month versus double that. Nurtec seems to be working and divalproex as well follow-up with [facility] 10/05/2024 Other I am seeing the patient under the supervision of the co-signing physician. The physician was available for consultation at the time of the office visit. PLAN OF TREATMENT Pending Test Test Name Order Date PFT, Spirometry with Bronchodialator Chey g Vol. DLCO with ABG 10/05/2024 Mammogram Screening Bilatera l, Perform ultrasound guided aspiration and/or breast biopsy if warranted 06/22/2024 Mammogram Screening Bilatera l, Perform ultrasound guided aspiration and/or breast biopsy if warranted 12/22/2024 Future Test Test Name Order Date PTH, Intact(without Calcium) 06/21/2018 TSH WITH REFLEX TO FT4 03/24/2022 KENDAL by IFA Rfx Titer/Pattern-[id number] 01/07 Hep A Ab, Total-[id number] 01/25/2025 Ferritin, (Serial)-[id number] 01/25/2025 Iron and TIBC-[id number] 01/25/2025 Hep B Core Ab, IgM-[id number] 01/25/2025 GGT-[id number] 01/25/2025 Hep B Surf Ag, Screen-[id number] 01/25/2025 HCV Antibody-[id number] 01/25/2025 Urinalysis, Routine-[id number] 01/28/2025 Hepatic Function Panel [id number] 2024 Insurance Providers Payer Name Payer Address Payer Phone Subscriber Number Group Number Insured Name Patient Relationship to Insured Coverage Start Date Coverage End Date [employer] [address] [place] [phone] [id number] SIMON CHAU Self - patient is the insured 2020 MEDICAL (GENERAL) HISTORY Medical History History ICD Code constipation prev rx zelnorm stopped 200 5 irritable bowel syndrome flex sig 04/2002 headaches N/V nl free T4, amylase, CBC Hypothyroidism/ Hash, Dx 1996 L lower pole 20 mm thyroid n odule, FNA benign 11/13.Enlarging (42l65p44 mm) as of US 02/23-more cystic PCOS/truncal acne-spironolactone by derm . Kidney stone 2004-passed, di d not catch. 2009 another attach and needed litotripsy, -mostly calcium ox. 2 more attacks-not examined. Urol Dr [place] ? Rt inf parathyroid enlargement on US i n 02/23. [facility] nl. PTH not received covid-[address] of abdomen and pelvis February 2023 n egative Left lobe thyroid nodule fine-needle asp iration 2023 negative Colonoscopy 2020 [facility] Cardiac echo 2021 normal Cardiac echo November [address] October 2024 negative Stress test October 2024 negative Surgical History Surgery Date(Month/Year) right hand surgery 09/18/20 gallbladder 2018 spinal surgery 2017 kidney stones 2009 dental surgery 1988 appendectomy 2004 endometrial ablation 2004 Hospitalization History Reason Date(Month/Year) Manuel/ [facility]- extreme migraine 3-10/23/22 Manuel- sciatic pain 02/15/23
--- OUTSIDE RECORDS SUMMARY | 2025-02-09 21:42 | XMS_ITS | Patient Health Record ---
Author Organization [facility] Address [address] [place] [address] Care Team Providers Care Ct Scan Tech Name Role Phone Vikram Walker Primary Care [...] HOURS NEEDED FOR NAUSEA; Duration: 15 Active Jqtaqryccz-UIYL-Ilyll ine 50-325-40 MG TAKE ONE CAPSULE BY [...] Risk Notes Problem Refractory migraine with aura (575075569) Migraine with aura, intractable, with status migrainosus (G43.111) Active confirmed Problem Chronic intractable migraine without aura (395313920684588 ) Chronic migraine without aura, intractable, with status migrainosus (G43.711) Active confirmed Problem Benign intracranial hypertension (00713140) Benign intracranial hypertension (G93.2) Active confirmed Problem Myalgia of auxiliary muscles, head and neck (M79.12) Active confirmed Plan Of Treatment No Information Insurance Providers Payer Name Payer Address Payer Phone Subscriber Number Group Number Insured Name Patient Relationship to Insured Coverage Start Date Coverage End Date [facility] [address] [place], [place] [id number] Adrienne Jackson Self - patient is the insured Medical (General) History Medical History History ICD Code COVID Multiple Bulging discs Surgical History Surgery Date(Month/Year) C7-T1 herniated disc repair 2016 Hospitalization History Reason Date(Month/Year) ER x2 for migraine 10/2022
--- OUTSIDE RECORDS SUMMARY | 2025-02-09 21:42 | XMS_ITS | Clinical Summary ---
Author Organization [facility] Address [address] [address] Phone Care Team Providers Care Ict Teacher Name Role Phone Tibucrio Chau MD Primary Care Provider + [phone] Allergies Active Allergy Reactions Criticality Noted Date [...] Plan (06/11/2023 10:36 AM EDT): Patient saw fusion operator who recommended endocrine testing. Added vitamin D, [...] TSH today and will discuss results through [facility]. Reviewed symptoms of under and over replacement, [...] 04/10/2023 Are you denied basic needs s [facility] as food, clothing, or medical care? No [...] EDT) TSH 0.94 0.27 - 4.20 uIU/mL [facility] Blood 06/10/2023 9:39 AM EDT 06/10/2023 9:43 AM EDT us Nishi Oro MD LAB BLOOD BKR ORDERABLES Final Result [address] [address] from Last 3 Months or Most Recently Relevant to Health Maintenance Insurance [employer] [facility] [employer] [facility] [place] [place] [id number] [employer] [facility] [place] [address] [employer] [facility] [employer] [facility] Care Teams Ict Teacher Relationship Specialty Start Date End Date Tiburcio Chau MD [address] [place] [address] PCP - General Internal Medicine 08/08/22 Additional Source Comments The information contained in this document represents components of the legal health record. It is not the complete legal health record.[facility]
--- OUTSIDE RECORDS SUMMARY | 2025-02-09 21:45 | XMS_ITS | Encounter Summary ---
Author Organization [facility] Address [address] [place] [address] Phone Care Team Providers Care Caul Dresser Name Role Phone Tiburcio Jackson MD Primary Care Provider + [phone] Encounter Details Date Type Department Care Team (Late st Contact Info) Description 04/10/2023 Procedure Pass [facility] Cardiovascular And Interventional Radiology [address] [place] [address] Social History Tobacco Use Types Packs/Day Years [...] on filedocumented in this encounter Care Teams Caul Dresser Relationship Specialty Start Date End Date Tiburcio Jackson MD [address] [place] [address] PCP - General Internal Medicine 08/08/22 documented as of this encounter Additional Source Comments The information contained in this document represents components of the legal health record. It is not the complete legal health record.[facility]
--- OUTSIDE RECORDS SUMMARY | 2025-02-09 21:46 | XMS_ITS | Clinical Summary ---
Author Organization [facility] Address [address] [place] [address] Care Team Providers Care Plate Colorer Name Role Phone Vikram Walker MD Primary Care Provider [phone] Social History Tobacco Use Types Packs/Day Years Used Date Smoking Tobacco: Never Assessed Comments Unknown Sex and Gender Information Value Date Recorded Sex Assigned at Not on file Legal Sex Female 4:50 AM EDT Gender Identity Not on file Sexual Orientation Not on file Plan of Treatment Health Maintenance Due Date Last Done Comments Cervical Cancer Screening 1976 Cologuard 1976 Colon Cancer Screening 1976 Colonoscopy 1976 FOBT / Fit Test 1976 HIV Screening 1976 HPV and Pap Smear 1976 Pap Smear 1976 Sigmoidoscopy 1976 Hepatitis B Vaccines (1 of 3 - 19+ 3-dose series) 1995 DTaP,Tdap,and Td Vaccines (1 - Tdap) 1998 Mammogram 2016 Alcohol/Substance Use Screening 03/09/2024 Influenza Vaccine (#1) 2024 2, 12/05/2019, 02/08/2018, Additional history exists COVID-19 Vaccine ( season) 2024 02/26/2021, 04/20/2020, 03/30/2020 Pneumococcal Vaccine: Pediatric (0-5 Years) and At-Risk Patients (6-50 Years) Aged Out 01/30/2017 No longer eligible based on patient's age [place] [id number] [facility] Care Teams Plate Colorer Relationship Specialty Start Date End Date Vikram Walker MD PCP - General Neurology 12/11/22
== END 2025-02-09 16:08 | disposition home or self-care (01) ==
LOC: HO.HPS 15:37
PROVIDERS: PCP Internal Medicine; Visit Provider Hospitalist
DX: R06.02 Shortness of breath (principal); R06.2 Wheezing; R91.8 Other nonspecific abnormal finding of lung field; J21.9 Acute bronchiolitis, unspecified
CPT/HCPCS: 99214